=== PATIENT | male | born 1935 | race Caucasian/White ===

== ENCOUNTER 2018-02-20 11:53 | Inpatient (IN) | payer MEDICARE ==
[~2018-02-20 11:53] MED LIST: ISOVUE-370 76%-LOCM 1 ML ONE
[2018-02-20 12:49] LABS: Hemoglobin 15.5 g/dL (14.0-18.0); Mean Corpuscular HGB CONC 35.6 g/dL (32.0-36.0); Mean Corpuscular Hemoglobin 31.6 pg (27.0-31.0); Mean Corpuscular Volume 88.7 fL (78.0-98.0); Mean Platelet Volume 8.2 fL (7.4-10.4); Platelet Count 180 thou/uL (130-400); RBC Distribution Width 13.2 % (11.5-14.5); Red Blood Cell (RBC) Count 4.92 mill/uL (4.70-6.10); White Blood Cell (WBC) Count 10.7 thou/uL (4.8-10.8)
[2018-02-20 13:07] LABS: Band 28 % (5-11); Dohle Bodies SLIGHT; Lymphocytes 1 % (21-51); MDiff Complete? YES; Metamyelocyte 2 % (0-0); Monocytes 4 % (0-10); Neutrophil 63 % (42-75); Platelet Morphology Comment Appears Adequate; RBC Morphology Normal; Reactive Lymphocytes 1 % (0-10); Toxic Granulation SLIGHT; Vacuoles SLIGHT
[2018-02-20 13:08] LABS: ALT (SGPT) 17 U/L (8-55); AST (SGOT) 40 U/L (5-34); Albumin 3.9 g/dL (3.4-4.8); Alkaline Phosphatase 61 U/L (40-150); Anion Gap 20 mmol/L (10-20); BUN (Urea Nitrogen) 25 mg/dL (8.4-25.7); Bilirubin, Total 1.2 mg/dL (0.2-1.2); Calc. Creatinine Clearance 0 mL/min (70-130); Calcium 9.2 mg/dL (7.8-10.44); Carbon Dioxide 18 mmol/L (23-31); Chloride 98 mmol/L (98-107); Estimated GFR-MDRD 57; Globulin 3.4 g/dL (2.4-3.5); Glucose 134 mg/dL (83-110); Protein, Total 7.3 g/dL (5.8-8.1); Sodium 132 mmol/L (136-145)
[2018-02-20] MEDS ORDERED: cefTRIAXone\\ROCEPHIN 2 GM VIAL ONE (13:24)
[2018-02-20] MEDS ORDERED: Aspirin 325 MG TAB ONE (13:37)
[2018-02-20] MEDS ORDERED: Acetaminophen 500 MG TAB ONE (13:37)
[2018-02-20 13:38] LABS: CKMB 1.3 ng/mL (0-6.6)
[2018-02-20] MEDS ORDERED: Vancomycin HCl 1.25 GM in Sodium Chloride 0.9% 250 ML 250 ML IVPB SCH (13:45)
[2018-02-20] MEDS ORDERED: Gentamicin Sulfate 410 MG in Sodium Chloride 0.9% 100 ML IVPB SCH (13:45)
--- NOTE | 2018-02-20 14:24 | RAD ---
AP CHEST: HISTORY: Fever. FINDINGS: The lungs appear clear of infiltrate. Vascular markings normal. Heart and mediastinum unremarkable. Prominent aortic calcification is noted. IMPRESSION: No acute process. POS: [facility]
[2018-02-20 15:00] LABS: Bilirubin Small (Negative); Blood, Urine Negative (Negative); Clarity CLEAR (Clear); Glucose, Urine (Dipstick) Negative (Negative); Leukocyte Moderate (Negative); Nitrite Negative (Negative); Protein, Urine (Dipstick) 30 mg/dL (Neg-Trace); Specific Gravity, Urine 1.043 (1.002-1.036); pH, Urine 5.5 (5.0-9.0)
[2018-02-20 15:05] LABS: Bacteria/HPF None Seen HPF (None Seen); Pathc Cast-AUWi Flag 2.47 (0-2.49); RBC/HPF 0-3 HPF (0-3)
[2018-02-20 15:28] LABS: Hyaline Casts/LPF 0-3 HYALINE CAST LPF (0-3 Hyaline)
[2018-02-20] MEDS ORDERED: Norepinephrine 8 MG/0.9% NS 250 ML ONE (15:31)
--- NOTE | 2018-02-20 15:33 | CT ---
CT ANGIOGRAM OF THE CHEST: DATE: 02/20/2018. COMPARISON: None. HISTORY: Tachycardia, fever, chills. TECHNIQUE: Axial CT imaging at 2.5 mm intervals from the thoracic inlet through the upper abdomen with IV contra st using a CT angiogram protocol. Coronal and oblique sagittal 3D reformatted imaging obtained. FINDINGS: There is no axillary, mediastinal, or hilar lymphadenopathy. No significant pleural, pericardial, or mediastinal fluid. There is questionable mild wall thickening of the esophagus, particularly distal ly, versus under distention. Limited assessment of the upper abdomen demonstrates scattered atherosc lerotic calcification of the abdominal aorta and its branches. The abdominal aorta is ectatic, measu ring up to 2.8 cm in transverse dimension. There is extensive atherosclerotic calcification of the thoracic aorta and there is scattered atheros clerotic calcification of the coronary arteries. There is adequate opacification of the pulmonary arterial vasculature. No filling defect is seen to suggest the presence of acute pulmonary arterial embolism. There is no endobronchial lesion apparent on either side. There is an irregularly marginated nodular density present within the anterior inferior aspect of the right lower lobe best seen on image 86 measuring in the 7-8 mm range. It has an irregular spiculate d configuration on coronal reformatted imaging. A pulmonary nodule is noted within the right lower lobe on image 90 measuring 5 mm. There is a pulmonary nodule within the left upper lobe on axial image 59 measuring 6 mm, and there is linear density in the left upper lobe suggesting scar and/or volume loss centrally. No dominant pul monary parenchymal mass lesion or significant nodule noted in left lower lobe. Incidental note is ma de of a tiny nodule in the left lower lobe on image 99 measuring in the 2-3 mm range. Review of the osseous structures demonstrates no worrisome lytic or blastic lesion. IMPRESSION: 1. No evidence for pulmonary arterial embolism. 2. Diffuse atherosclerotic disease including coronary arterial calcification. 3. Questionable wall thickening versus under distention of the esophagus. 4. Noncalcified pulmonary nodules, which includes an irregularly marginated somewhat spiculated nodu le in right lower lobe measuring in the 7-8 mm range. Recommend short-term followup CT examination o f the chest in 3 months. This could represent a small/early malignancy. Dr. Cervantes made aware at 2:12 p.m. via phone by Dr. Murphy 02/20/2018. CODE CR POS: [facility]
--- NOTE | 2018-02-20 16:24 | RAD ---
EXAM: CHEST ONE VIEW: 02/20/18 HISTORY: Dyspnea, tachycardia, right central line. COMPARISON: 02/20/18. A right central line has been placed with the tip extending into the superior vena cava. Heart size i s normal. There is no pneumothorax or pleural effusion or other acute process. IMPRESSION: Right central line placement. No acute intrathoracic disease. Stable from prior study. POS: [facility]
[2018-02-20 16:34] LABS: Troponin I 0.511 ng/mL (< 0.028)
[2018-02-20 16:44] LABS: Lactic Acid 2.1 mmol/L (0.5-2.2)
--- NOTE | 2018-02-20 17:02 | HP ---
PRIMARY CARE PHYSICIAN: [facility]. This patient is recently moved from [place] to [facility]. HISTORY OF PRESENT ILLNESS: An 82-year-old male, who has underlying history of hypertension, diabetes type 2, dyslipidemia, benign enlargement of prostate, anxiety, and depression as well as heavy ongoing tobacco abuse disorder, who was sick for last 2 to 3 days. The patient was experiencing fever, chills, weakness , nausea, and vomiting, which were keep getting worse day by day. Last night, he was more uncomfortable. He was having dysuria, increased frequency as well as back pain and lower abdominal pain associated with several times of vomiting. His appetite was also reduced. He was feeling extremely fatigued and weak. In the emergency room at that time, he was found with routine blood test with bandemia. His chest x-ray was unremarkable. His CT angiography showed no evidence of pulmonary embolism, but did show pulmonary nodule. In the emergency room, the patient's blood pressure dropped to 72/37. He was febrile with a temperature T-maximum 102.8 and he was tachycardic with pulse 127. He was given 3 L of IV fluid. Despite that, the patient's blood pressure was not improving and that is why we decided to do central line in emergency room. The patient will be admitted to ICU for septic shock. The patient denies any flu-like illness. He does have chronic smoker's cough. He denies any shortness of breath. He denies any hemoptysis. He denies any hematuria. He denies any constipation, diarrhea, melena, or hematochezia. He denies any recent travel or sick exposure. The patient's routine blood test also showed significantly abnormal troponin, but he denies any chest pain, palpitation, or syncope. He denies any fall. REVIEW OF SYSTEMS: CONSTITUTIONAL: Negative for weight loss or gain, ability to conduct usual activities. SKIN: Negative for rash, itching. EYES: Negative for double vision, pain. ENT/MOUTH: Negative for nose bleeding, neck stiffness, pain, tenderness. CARDIOVASCULAR: Negative for palpitations, dyspnea on exertion, orthopnea. RESPIRATORY: Negative for shortness of breath, wheezing, cough, hemoptysis, fever or night sweats. GASTROINTESTINAL: Negative for poor appetite, abdominal pain, heartburn, nausea , vomiting, constipation, or diarrhea. GENITOURINARY: Negative for urgency, frequency, dysuria, nocturia. MUSCULOSKELETAL: Negative for pain, swelling. NEUROLOGIC/PSYCHIATRIC: Negative for anxiety, depression. ALLERGY/IMMUNOLOGIC: Negative for skin rash, bleeding tendency. Please see my HPI for pertinent positives and negatives. All other review of systems are reviewed and negative, except as mentioned in the HPI. PAST MEDICAL HISTORY: Hypertension, peripheral vascular disease, tobacco abuse disorder, diabetes type 2, dyslipidemia, benign enlargement of prostate, restless legs syndrome. PAST PSYCHIATRIC HISTORY: Anxiety and depression. PAST SURGICAL HISTORY: The patient is a poor historian. He does not provide significant past surgical history other than he had orthopedic surgery on right leg. FAMILY HISTORY: No family history of coronary artery disease, stroke, or cancer. ALLERGIES: NO KNOWN DRUG ALLERGIES. SOCIAL HISTORY: Patient smokes 1.5 pack per day, he denies alcohol or drug abuse , lives at home in [place] with . CURRENT HOME MEDICATIONS: 1. Ropinirole 2 mg p.o. at bedtime. 2. Clonazepam 1 mg p.o. at bedtime. 3. Bupropion 150 mg daily. 4. Losartan 100 mg daily. 5. Cilostazol 50 mg p.o. b.i.d. 6. Metformin 750 mg daily. 7. Zoloft 100 mg daily. 8. Zocor 40 mg p.o. at bedtime. 9. Flomax 0.4 mg p.o. daily. It is unclear whether the patient was on Rocephin or Bactrim. The patient is not able to provide this history to me. EMERGENCY ROOM COURSE: The patient has received vancomycin, gentamicin, IV fluid, aspirin. PHYSICAL EXAMINATION: VITAL SIGNS: T-maximum 102.8, pulse 127, blood pressure 72/37, weight 82.1 kg, saturation 94% on room air. GENERAL: The patient is currently ill, hypotensive, tachycardic. No obvious acute distress. HEENT: Head; normocephalic, atraumatic. Eyes; pupils are round, reactive to light. Extraocular muscle intact. Face; the patient does have facial flushing. ENT; oropharynx within normal limits. Somewhat dry appearing mucous membranes. No oral lesion. No pharyngeal erythema. No exudate. NECK: Supple. No JVD. No thyromegaly. No carotid bruit. LUNGS: Grossly clear to auscultation without any rhonchi or rales. No accessory muscles of respiration in use. CARDIAC: S1 and S2, regular. Tachycardia. Soft systolic murmur noted parasternally. No gallop. No rub. ABDOMEN: Soft. Bowel sounds are present. Nontender. Nondistended. No organomegaly. No mass. No suprapubic tenderness. BACK: Unremarkable. No CVA tenderness. EXTREMITIES: Upper extremities; passive movement of all joints are normal. Lower extremities; no edema. Good distal pulsation. SKIN: No skin rash. HEMATOLOGICAL: No lymphadenopathy. PSYCHIATRIC: Normal affect. NEUROLOGIC: Nonfocal examination. SIGNIFICANT LABORATORY DATA: Urinalysis consistent with urinary tract infection with high specific gravity; leukocyte esterase, moderate; protein 30; WBC greater than 50. BNP 238.4. Influenza A and B negative. Troponin I 0.527. CK-MB 1.3. CBC; WBC 10.7, hemoglobin 15.5, platelets 180 with bandemia 28%. BMP; sodium 132, potassium 4.0, chloride 98, carbon dioxide 18, anion gap 20, BUN 25, creatinine 1.22, glucose 134, calcium 9.4. LFT; AST 40, ALT 17, alkaline phosphatase 61, albumin 3.9, lactic acid 3.3. Chest x-ray based on my review; emphysematous changes, but no acute process. CT angiography; pulmonary nodule noted, but no infiltration. ASSESSMENT AND PLAN: 1. Septic shock. The patient has high-grade fever, tachycardia, hypotension. The patient's hypotension has not improved with IV fluid in the emergency room. He has source of infection with urinary tract infection. The patient will require central line placement and vasopressor support. The patient will be admitted in ICU overnight. We will titrate Levophed drip as needed. The patient will be given IV fluid with NS at 125 mL/hr. We will watch for hemodynamics. The patient will be given broad-spectrum antibiotic therapy with vancomycin, Zosyn. We will follow up on culture result. Pulmonary Critical Care group will be consulted in ICU. 2. Demand ischemia of myocardium. The patient has significantly elevated troponin. We will do serial cardiac enzyme to see the trend of troponin. The patient is not complaining of any chest pain. His EKG is not showing any ischemic changes. Cardiology will be consulted. Echocardiography will be obtained. We will continue with aspirin 325 mg p.o. daily. We will check lipid profile tomorrow morning. The patient has low blood pressure, that is why he can not have any other medication. 3. Sepsis with acute organ dysfunction. The patient does have associated demand ischemia of myocardium with severe sepsis with hypotension. As mentioned in problem #1, the patient will get vasopressor support, IV fluid, broad-spectrum antibiotic coverage. 4. Urinary tract infection. Urine culture will be sent. Blood culture will be sent. The patient will be started on broad-spectrum antibiotic therapy and will follow up on culture result, and based on culture result, we will narrow down antibiotic spectrum. 5. Bandemia. We will also check stool for C diff if the patient has any diarrhea to rule out any C diff infection. We will also check influenza. We will also check other virus screen. 6. Diabetes type 2. We will hold on metformin therapy. We will continue with insulin as per sliding scale per protocol. Diabetic diet will be given. 7. Anxiety and depression. We will continue clonazepam 1 mg at bedtime, Zoloft 100 mg daily. 8. Dyslipidemia. We will continue Zocor 40 mg p.o. at bedtime. 9. Benign enlargement of prostate. We will continue Flomax 0.4 mg p.o. b.i.d. We will watch for any postvoid residual volume. 10. History of hypertension. Currently, we will hold antihypertensive medication because of hypotension. 11. Peripheral vascular disease. We will continue cilostazol as per home dosage. 12. Tobacco abuse disorder. Smoking cessation counseling given. Healthy lifestyle measure discussed with the patient. 13. Elevated BNP. We will obtain echocardiography to assess ejection fraction and will watch for any fluid overload status. DISPOSITION AND PLAN: Based on clinical course, we are expecting the patient's stay in hospital more than 2 midnights. Total time spent providing critical care to this patient in the emergency room, 35 minutes. Job ID: [id number] MTDD
[2018-02-20] MEDS: Sodium Chloride 0.9% 1,000 ML IV SCH (17:05)
[2018-02-20] MEDS ORDERED: Acetaminophen 325 MG TAB PO PRN (17:24)
[2018-02-20] MEDS ORDERED: Dextrose 50% Abboject 50 ML SYRINGE SLOW IVP PRN (17:24)
[2018-02-20] MEDS ORDERED: HumaLOG 300 UNITS/3 ML VIAL SC PRN (17:24)
[2018-02-20] MEDS ORDERED: Norepinephrine 8 MG/0.9% NS 250 ML IVPB SCH (17:24)
[2018-02-20] MEDS ORDERED: HYDROcodone/Acetaminophen 5/325 mg Tablet PO PRN (17:24)
[2018-02-20] MEDS ORDERED: Sodium Chloride 0.65% Nasal 44 ML BOT EA NARE PRN (17:24)
[2018-02-20] MEDS ORDERED: Bisacodyl 5 MG TAB PO PRN (17:24)
[2018-02-20] MEDS ORDERED: Diabetic Tussin 200 MG/10 ML UDCUP PO PRN (17:24)
[2018-02-20] MEDS ORDERED: Metoclopramide HCl 10 MG/2 ML VIAL IVP PRN (17:24)
[2018-02-20] MEDS ORDERED: Zolpidem Tartrate 5 MG TAB PO PRN (17:24)
[2018-02-20] MEDS ORDERED: Ondansetron PF 4 MG/2 ML Vial IVP PRN (17:24)
[2018-02-20] MEDS ORDERED: Eucerin (Mineral Oil/Petrolatum,White) 30 gm Jar TOP PRN (17:24)
[2018-02-20] MEDS ORDERED: Ondansetron ODT 4 MG TAB PO PRN (17:24)
[2018-02-20] MEDS ORDERED: Calcium Carbonate 500 MG ChewTAB PO PRN (17:24)
[2018-02-20] MEDS ORDERED: Bisacodyl 10 MG SUPP PR PRN (17:24)
[2018-02-20] MEDS ORDERED: Artificial Tear Sol 15 ML BOT EA EYE PRN (17:24)
[2018-02-20] MEDS ORDERED: Cepastat Lozenges 1 LOZ PO PRN (17:24)
[2018-02-20] MEDS ORDERED: hydrALAZINE 20 MG/ML VIAL SLOW IVP PRN (17:24)
[2018-02-20] MEDS ORDERED: Dextrose 5% in Water 1,000 ML IV PRN (17:24)
[2018-02-20] MEDS: Nicotine 21 MG PATCH TD SCH (18:37)
[2018-02-20] MEDS: Piperacillin/Tazobactam 3.375 GM in Sodium Chloride 0.9% 100 ML IVPB SCH ×2 (18:38→23:13)
[2018-02-20 19:43] LABS: Critical Call Chem Troponin I DECREASE; Troponin I 0.375 ng/mL (< 0.028)
[2018-02-20] MEDS: Famotidine 20 MG TAB PO SCH (20:16)
[2018-02-20] MEDS: Cilostazol 100 MG TAB PO SCH (20:17)
[2018-02-20] MEDS: Atorvastatin Calcium 20 MG TAB PO SCH (20:17)
[2018-02-20] MEDS: clonazePAM 1 MG TAB PO PRN (21:42)
[2018-02-21 05:05] LABS: #Basophils 0.1 thou/uL (0.0-0.2); #Lymphocytes 0.5 thou/uL (1.20-3.40); #Monocytes 0.4 thou/uL (0.11-0.59); #Neutrophils 7.7 thou/uL (1.40-6.50); %Basophils 1.5 % (0.0-1.0); %Eosinophils 0.2 % (0.0-10.0); %Lymphocytes 5.3 % (21.0-51.0); %Monocytes 4.5 % (0.0-10.0); %Neutrophils 88.5 % (42.0-75.0); Hemoglobin 14.4 g/dL (14.0-18.0); Mean Corpuscular Hemoglobin 30.8 pg (27.0-31.0); Mean Platelet Volume 8.1 fL (7.4-10.4); Platelet Count 146 thou/uL (130-400); Red Blood Cell (RBC) Count 4.68 mill/uL (4.70-6.10); White Blood Cell (WBC) Count 8.7 thou/uL (4.8-10.8)
[2018-02-21 05:28] LABS: Lactic Acid 1.6 mmol/L (0.5-2.2)
[2018-02-21 05:31] LABS: ALT (SGPT) 58 U/L (8-55); AST (SGOT) 111 U/L (5-34); Albumin 3.2 g/dL (3.4-4.8); Alkaline Phosphatase 73 U/L (40-150); Anion Gap 12 mmol/L (10-20); BUN (Urea Nitrogen) 18 mg/dL (8.4-25.7); Bilirubin, Total 1.1 mg/dL (0.2-1.2); Calc. Creatinine Clearance 73 mL/min (70-130); Carbon Dioxide 22 mmol/L (23-31); Cardiac Risk 6.5 (Less than 4.5); Chloride 101 mmol/L (98-107); Cholesterol 84 mg/dl (< 200 Desired); Estimated GFR-MDRD 81; Globulin 2.9 g/dL (2.4-3.5); Glucose 129 mg/dL (83-110); HDL Cholesterol 13 mg/dL (>60 Neg Risk); LDL Cholesterol, Calculated 37 mg/dL; Potassium 3.8 mmol/L (3.5-5.1); Protein, Total 6.1 g/dL (5.8-8.1); Sodium 131 mmol/L (136-145); Triglycerides 168 mg/dL (Less than 150)
[2018-02-21] MEDS: Sodium Chloride 0.9% 1,000 ML IV SCH ×3 (05:46→23:41)
[2018-02-21] MEDS: Piperacillin/Tazobactam 3.375 GM in Sodium Chloride 0.9% 100 ML IVPB SCH ×4 (06:40→23:41)
--- NOTE | 2018-02-21 10:03 | PDOC.PN ---
- Subjective Encounter Start Date: 02/21/18 Encounter Start Time: 09:00 -: old records requested/rev Patient seen and examined. No overnight events pt has urinary retention today he used bipap last night he had earlier panic episode - Objective Resuscitation Status - Order Detail: 02/20/18 15:48 Resuscitation Status Routine Resuscitation Status: FULL: Full Resuscitation MAR Reviewed: Yes Vital Signs & Weight: Vital Signs (12 hours) Temp Pulse Resp Pulse Ox 02/21/18 08:00 98.4 F 02/21/18 05:17 93 L 02/21/18 05:14 127 H 26 H 93 L 02/21/18 04:00 98.3 F 02/21/18 00:00 99.1 F Weight Admit Weight 185 lb 6.54 oz Weight 185 lb 6.54 oz Most Recent Monitor Data Heart Rate from ECG 114 NIBP 113/67 NIBP BP-Mean 82 Respiration from ECG 24 SpO2 93 I&O: 02/20/18 02/21/18 02/22/18 06:59 06:59 06:59 Intake Total 3153 Output Total 700 50 Balance 2453 -50 Result Diagrams: 02/21/18 04:59 02/21/18 04:59 Additional Labs: Accuchecks 02/21/18 02/20/18 02/20/18 08:13 20:23 18:58 POC Glucose 138 H 151 H 148 H EKG Reviewed by me: Yes (sinus tachycardia) Phys Exam - Physical Examination Constitutional: NAD HEENT: PERRLA, moist MMs, sclera anicteric Neck: no JVD, supple Respiratory: no wheezing, no rales, no rhonchi Cardiovascular: RRR, no significant murmur, no rub tachycardia Gastrointestinal: soft, no distention, positive bowel sounds urinary retension Musculoskeletal: no edema, pulses present Neurological: non-focal, normal sensation Lymphatic: no nodes Psychiatric: normal affect Skin: no rash, normal turgor Dx/Plan (1) Septic shock Code(s): A41.9 - SEPSIS, UNSPECIFIED ORGANISM; R65.21 - SEVERE SEPSIS WITH SEPTIC SHOCK Status: Acute (2) Lactic acidosis Code(s): E87.2 - ACIDOSIS Status: Acute (3) UTI (urinary tract infection) Status: Acute (4) Demand ischemia of myocardium Code(s): I24.8 - OTHER FORMS OF ACUTE ISCHEMIC HEART DISEASE Status: Acute (5) Urinary retention due to benign prostatic hyperplasia Code(s): N40.1 - BENIGN PROSTATIC HYPERPLASIA WITH LOWER URINARY TRACT SYMP; R33.8 - OTHER RETENTION OF URINE Status: Acute (6) Elevated brain natriuretic peptide (BNP) level Code(s): R79.89 - OTHER SPECIFIED ABNORMAL FINDINGS OF BLOOD CHEMISTRY Status : Acute (7) Lung nodule, solitary Code(s): R91.1 - SOLITARY PULMONARY NODULE Status: Acute (8) Anxiety and depression Code(s): F41.9 - ANXIETY DISORDER, UNSPECIFIED; F32.9 - MAJOR DEPRESSIVE DISORDER, SINGLE EPISODE, UNSPECIFIED Status: Chronic (9) BPH (benign prostatic hyperplasia) Code(s): N40.0 - BENIGN PROSTATIC HYPERPLASIA WITHOUT LOWER URINRY TRACT SYMP Status: Chronic (10) COPD (chronic obstructive pulmonary disease) Status: Chronic (11) Diabetes type 2, controlled Code(s): E11.9 - TYPE 2 DIABETES MELLITUS WITHOUT COMPLICATIONS Status: Chronic (12) Tobacco abuse Code(s): Z72.0 - TOBACCO USE Status: Chronic - Plan cont current plan of care, espinosa catheter, continue antibiotics * medication reviewed as below * symptomatic treatment * insert espinosa * continue current antibiotics vancomycin, zosyn and levaquin * now off levophed * follow culture * cardiology and pulmonary will see today * echo pending * home medication reconciled * he will need outpt follow up with pulmonary for lung nodule and i discussed that result with pt. Review of Systems - Review of Systems Constitutional: negative: fever, chills, sweats, weakness, malaise, other Eyes: negative: Pain, Vision Change, Conjunctivae Inflammation, Eyelid Inflammation, Redness, Other ENT: negative: Ear Pain, Ear Discharge, Nose Pain, Nose Discharge, Nose Congestion, Mouth Pain, Mouth Swelling, Throat Pain, Throat Swelling, Other Respiratory: negative: Cough, Dry, Shortness of Breath, Hemoptysis, SOB with Excertion, Pleuritic Pain, Sputum, Wheezing Cardiovascular: negative: chest pain, palpitations, orthopnea, paroxysmal nocturnal dyspnea, edema, light headedness, other Gastrointestinal: negative: Nausea, Vomiting, Abdominal Pain, Diarrhea, Constipation, Melena, Hematochezia, Other Genitourinary: Dysuria, Retention. negative: Frequency, Incontinence, Hematuria , Other Musculoskeletal: negative: Neck Pain, Shoulder Pain, Arm Pain, Back Pain, Hand Pain, Leg Pain, Foot Pain, Other Skin: negative: Rash, Lesions, Florentin, Bruising, Other - Medications/Allergies Allergies/Adverse Reactions: Allergies Allergy/AdvReac Type Severity Reaction Status Date / Time No Known Drug Allergies Allergy Verified 02/20/18 20:08 Medications: Current Medications Acetaminophen (Tylenol) 650 mg PO Q4H PRN PRN Reason: Headache/Fever/Mild Pain (1-3) Last Admin: 02/20/18 20:16 Dose: 650 mg Hydrocodone Bitart/Acetaminophen ([place]orman 5/325) 1 tab PO Q4H PRN PRN Reason: Moderate Pain (4-6) Albuterol/Ipratropium (Duoneb) 3 ml NEB [id number] PRN PRN Reason: SOB &/or Wheezing Last Admin: 02/21/18 05:14 Dose: 3 ml Artificial Tears (Tears Renewed 15ml Bottle) 2 drop EA EYE PRN PRN PRN Reason: Dry Eyes Aspirin (Aspirin) 325 mg PO DAILY [facility] Atorvastatin Calcium (Lipitor) 20 mg PO HS [facility] Last Admin: 02/20/18 20:17 Dose: 20 mg Bisacodyl (Dulcolax) 10 mg NM DAILYPRN PRN PRN Reason: Constipation Bisacodyl (Dulcolax) 10 mg PO DAILYPRN PRN PRN Reason: Constipation Bupropion HCl (Wellbutrin Xl) 150 mg PO DAILY [facility] Calcium Carbonate (Tums) 1,000 mg PO Q4H PRN PRN Reason: Heartburn or Indigestion Cilostazol (Pletal) 50 mg PO Q12HR [facility] Last Admin: 02/20/18 20:17 Dose: Not Given Clonazepam (Klonopin) 1 mg PO Q24HR PRN PRN Reason: Anxiety Last Admin: 02/20/18 21:42 Dose: 1 mg Dextrose/Water (Dextrose 50%) 25 gm SLOW IVP PRN PRN PRN Reason: Hypoglycemia Enoxaparin Sodium (Lovenox) 40 mg SC 0900 [facility] Famotidine (Pepcid) 20 mg PO BID [facility] Last Admin: 02/20/18 20:16 Dose: 20 mg Glucagon (Glucagon) 1 mg IM PRN PRN PRN Reason: Hypoglycemia Guaifenesin (Robitussin Sf) 200 mg PO Q4H PRN PRN Reason: Cough Hydralazine HCl (Apresoline) 10 mg SLOW IVP Q4H PRN PRN Reason: SBP > 180 and HR < 70 Sodium Chloride (Normal Saline 0.9%) 1,000 mls @ 100 mls/hr IV .Q10H [facility] Last Admin: 02/21/18 05:46 Dose: 1,000 mls Piperacillin Sod/Tazobactam (Sod 3.375 gm/ Sodium Chloride) 100 mls @ 200 mls/ hr IVPB Q6HR [facility] Last Admin: 02/21/18 06:40 Dose: 100 mls Levofloxacin 500 mg/ Device 100 mls @ 100 mls/hr IVPB Q24HR [facility] Last Admin: 02/20/18 20:17 Dose: 100 mls Dextrose/Water (D5w) 1,000 mls @ 0 mls/hr IV .Q0M PRN PRN Reason: Hypoglycemia Norepinephrine Bitartrate (Levophed) 250 mls @ 0 mls/hr IVPB INF ADILENE; Protocol Insulin Human Lispro (Humalog) 0 units SC .MODERATE SLIDING SC PRN PRN Reason: Moderate Correctional Scale Insulin Human Lispro (Humalog) 0 units SC .BEDTIME SLIDING SC PRN PRN Reason: Bedtime Correctional Scale Loperamide HCl (Imodium) 2 mg PO PRN PRN PRN Reason: Diarrhea/Loose Stools Methylprednisolone Sodium Succinate (Solu-Medrol) 40 mg IVP Q6HR [facility] Metoclopramide HCl (Reglan) 5 mg IVP Q4H PRN PRN Reason: Nausea Mineral Oil/White Petrolatum (Eucerin Cream) 0 gm TOP BIDPRN PRN PRN Reason: Dry Skin Mometasone Furoate/Formoterol Fumar (Dulera 200 Mcg/5 Mcg Inhaler) 2 puff INH BID-RT [facility] Nicotine (Nicoderm Patch) 21 mg TD Q24HR [facility] Last Admin: 02/20/18 18:37 Dose: 21 mg Non-Formulary Medication (Ropinirole Hcl [Ropinirole Er]) 2 mg PO HS [facility] Ondansetron HCl (Zofran Odt) 4 mg PO Q6H PRN PRN Reason: Nausea/Vomiting Ondansetron HCl (Zofran) 4 mg IVP Q6H PRN PRN Reason: Nausea/Vomiting Sertraline HCl (Zoloft) 100 mg PO DAILY [facility] Sodium Chloride ([place] Nasal [place] 0.65%) 0 ml EA NARE QIDPRN PRN PRN Reason: Nasal Congestion Tamsulosin HCl (Flomax) 0.4 mg PO DAILY [facility] Throat Lozenges (Cepastat Lozenges) 1 nila PO Q2H PRN PRN Reason: Sore Throat Zolpidem Tartrate (Ambien) 5 mg PO HSPRN PRN PRN Reason: Insomnia
[2018-02-21] MEDS: Cilostazol 100 MG TAB PO SCH ×2 (10:05→20:53)
[2018-02-21] MEDS: Aspirin 325 MG TAB PO SCH (10:05)
[2018-02-21] MEDS: Famotidine 20 MG TAB PO SCH ×2 (10:06→20:56)
[2018-02-21] MEDS: Tamsulosin HCl 0.4 MG CAP PO SCH (10:06)
[2018-02-21] MEDS: Enoxaparin Sodium 40 MG/0.4 ML SYRINGE SC SCH (10:07)
--- NOTE | 2018-02-21 10:29 | CON ---
DATE OF CONSULTATION: HISTORY OF PRESENT ILLNESS: Richard Rodríguez is an 82-year-old gentleman from [place], [place], recently moved here, presented yesterday with symptoms of urinary tract infection. He states that he has yet to get himself established with a primary care physician. He has had previous BPH problems. He as chills, sweats, and dysuria. He was seen several days earlier and was given some antibiotics. He is admitted for urosepsis down the line in the ICU last night, he started having chills and sweats and apparently had tachypnea and tachycardic for which he was placed on noninvasive ventilation. The patient clearly tells me he has had no prior history of pneumonia, TB, or asthma, in fact, he did walk up to a mile without getting markedly short of breath. He is a two pack-a-day smoker, still smoking. PAST MEDICAL HISTORY: Pertinent for history of hypertension, diabetes, UTI, tobacco abuse, anxiety, and depression. MEDICATIONS: From home include, 1. Zocor 40. 2. Metformin 750 once a day. 3. Bupropion 150 once a day. 4. Clonazepam 1 mg at nighttime. 5. Flomax 0.4. 6. Zoloft 100. 7. Ropinirole 2 mg. 8. Cozaar. 9. He has been started on Zosyn and Levaquin. SOCIAL HISTORY: Otherwise unremarkable. FAMILY HISTORY: Otherwise unremarkable. ALLERGIES: NONE. REVIEW OF SYSTEMS: Ten-point negative. PHYSICAL EXAMINATION: VITAL SIGNS: O2 saturation is 95% on 2 liters, pulse 80, blood pressure . CHEST: Decreased breath sounds. No wheezing. CARDIAC: Normal S1 and S2. No gallops or masses. LABORATORY DATA: White count 8000, H and 14 and 41, and platelet count normal. Lytes are normal. Sodium 131. Troponin is slightly elevated. His BNP was 238, borderline elevated. His chest x-ray showed no acute infiltrates. He had a CT done of his chest yesterday. It is unclear why it was ordered, but showed a small right-sided nodule of unknown significance. He has had no previous CT done of his chest. IMPRESSION: 1. Urosepsis. 2. Benign prostatic hyperplasia. 3. Depression. 4. Tobacco abuse. 5. A 7 mm right lower lung nodule of unknown significance. PLAN: He clearly is in no respiratory distress at this stage, though I have initiated nebs and steroids. PFT prior to discharge work up on the patient to get his lung nodule. Once he is stable, he can be transferred out of the ICU. Consultation note, 70 minutes, 50% direct patient care. Job ID: [id number]
[2018-02-21] MEDS: Nicotine 21 MG PATCH TD SCH (17:24)
[2018-02-21] MEDS: HumaLOG 300 UNITS/3 ML VIAL SC PRN (17:51)
[2018-02-21] MEDS: Mometasone/Formoterol 120 PUFF INHALER INH SCH (19:10)
[2018-02-21] MEDS: clonazePAM 1 MG TAB PO PRN (20:30)
[2018-02-21] MEDS: Atorvastatin Calcium 20 MG TAB PO SCH (20:56)
[2018-02-21] MEDS: Loperamide HCl 2 MG CAP PO PRN (20:59)
[2018-02-22] MEDS: Piperacillin/Tazobactam 3.375 GM in Sodium Chloride 0.9% 100 ML IVPB SCH ×4 (06:04→23:46)
[2018-02-22] MEDS: HumaLOG 300 UNITS/3 ML VIAL SC PRN ×2 (06:13→13:09)
[2018-02-22 08:21] LABS: #Basophils 0.2 thou/uL (0.0-0.2); #Lymphocytes 0.7 thou/uL (1.20-3.40); #Monocytes 0.5 thou/uL (0.11-0.59); #Neutrophils 6.6 thou/uL (1.40-6.50); %Basophils 2.3 % (0.0-1.0); %Eosinophils 0.1 % (0.0-10.0); %Lymphocytes 8.8 % (21.0-51.0); %Neutrophils 82.7 % (42.0-75.0); Hemoglobin 13.7 g/dL (14.0-18.0); Mean Corpuscular HGB CONC 35.5 g/dL (32.0-36.0); Mean Corpuscular Hemoglobin 30.8 pg (27.0-31.0); Mean Corpuscular Volume 86.7 fL (78.0-98.0); Mean Platelet Volume 8.4 fL (7.4-10.4); Platelet Count 142 thou/uL (130-400); Red Blood Cell (RBC) Count 4.43 mill/uL (4.70-6.10)
[2018-02-22 08:45] LABS: Anion Gap 12 mmol/L (10-20); BUN (Urea Nitrogen) 16 mg/dL (8.4-25.7); Calc. Creatinine Clearance 82 mL/min (70-130); Calcium 8.2 mg/dL (7.8-10.44); Carbon Dioxide 21 mmol/L (23-31); Chloride 103 mmol/L (98-107); Estimated GFR-MDRD 90; Glucose 175 mg/dL (83-110); Potassium 4.2 mmol/L (3.5-5.1); Sodium 132 mmol/L (136-145)
[2018-02-22] MEDS: Mometasone/Formoterol 120 PUFF INHALER INH SCH ×2 (08:55→19:44)
[2018-02-22] MEDS: Bupropion 150 MG XL TAB PO SCH (09:30)
[2018-02-22] MEDS: Aspirin 325 MG TAB PO SCH (09:30)
[2018-02-22] MEDS: Famotidine 20 MG TAB PO SCH ×2 (09:30→20:28)
[2018-02-22] MEDS: Tamsulosin HCl 0.4 MG CAP PO SCH (09:30)
[2018-02-22] MEDS: Enoxaparin Sodium 40 MG/0.4 ML SYRINGE SC SCH (09:30)
--- NOTE | 2018-02-22 09:51 | PRG ---
DATE OF SERVICE: 02/22/2018 SUBJECTIVE: This morning, he is better, less short of breath, less cough, less fever. OBJECTIVE: VITAL SIGNS: Temperature 97.8, blood pressure , respiratory rate 18, and pulse 80. CHEST: Decreased breath sounds and wheezing. CARDIAC: Normal S1 and S2. No gallops. ABDOMEN: No masses. LABORATORY DATA: White count 8000, hemoglobin and hematocrit 10 and 38, platelet count is normal. Lytes are normal. IMPRESSION: 1. Presumed sepsis. 2. Right lung nodule, probably chronic obstructive pulmonary disease. PLAN: 1. Pulmonary elliott, he is on neb treatments, steroids, and empiric antibiotics for sepsis syndrome, but I do not see any evidence of any sepsis at this stage. 2. Input from Cardiology. 3. If stable, he can be transferred out of the ICU. Job ID: [id number]
--- NOTE | 2018-02-22 10:04 | PDOC.PN ---
- Subjective Encounter Start Date: 02/22/18 Encounter Start Time: 08:45 -: old records requested/rev Patient seen and examined. No new complaints. No overnight events - Objective Resuscitation Status - Order Detail: 02/20/18 15:48 Resuscitation Status Routine Resuscitation Status: FULL: Full Resuscitation MAR Reviewed: Yes Vital Signs & Weight: Vital Signs (12 hours) Temp Pulse Ox 02/22/18 08:56 95 02/22/18 04:00 97.8 F 02/22/18 00:00 98.9 F Weight Admit Weight 185 lb 6.54 oz Weight 190 lb 11.198 oz Most Recent Monitor Data Heart Rate from ECG 94 NIBP 117/77 NIBP BP-Mean 90 Respiration from ECG 23 SpO2 95 I&O: 02/21/18 02/22/18 02/23/18 06:59 06:59 06:59 Intake Total 3153 3437 Output Total 700 1620 Balance 2453 1817 Result Diagrams: 02/22/18 08:02 02/22/18 08:02 Additional Labs: Accuchecks 02/22/18 02/21/18 02/21/18 06:13 21:05 17:43 POC Glucose 183 H 203 H 183 H 02/21/18 11:52 POC Glucose 147 H Radiology Reviewed by me: Yes (echo report reviewed) EKG Reviewed by me: Yes (nsr) Phys Exam - Physical Examination Constitutional: NAD HEENT: PERRLA, moist MMs, sclera anicteric, oral pharynx no lesions Neck: no JVD, supple Respiratory: no wheezing, no rales, no rhonchi Cardiovascular: RRR, no significant murmur, no rub Gastrointestinal: soft, non-tender, no distention, positive bowel sounds Musculoskeletal: no edema, pulses present Neurological: non-focal, normal sensation, moves all 4 limbs Lymphatic: no nodes Psychiatric: normal affect, A&O x 3 Skin: no rash, normal turgor Dx/Plan (1) Septic shock Code(s): A41.9 - SEPSIS, UNSPECIFIED ORGANISM; R65.21 - SEVERE SEPSIS WITH SEPTIC SHOCK Status: Resolved (2) Lactic acidosis Code(s): E87.2 - ACIDOSIS Status: Resolved (3) UTI (urinary tract infection) Status: Acute (4) Demand ischemia of myocardium Code(s): I24.8 - OTHER FORMS OF ACUTE ISCHEMIC HEART DISEASE Status: Acute (5) Urinary retention due to benign prostatic hyperplasia Code(s): N40.1 - BENIGN PROSTATIC HYPERPLASIA WITH LOWER URINARY TRACT SYMP; R33.8 - OTHER RETENTION OF URINE Status: Acute (6) Elevated brain natriuretic peptide (BNP) level Code(s): R79.89 - OTHER SPECIFIED ABNORMAL FINDINGS OF BLOOD CHEMISTRY Status : Acute (7) Lung nodule, solitary Code(s): R91.1 - SOLITARY PULMONARY NODULE Status: Acute (8) Anxiety and depression Code(s): F41.9 - ANXIETY DISORDER, UNSPECIFIED; F32.9 - MAJOR DEPRESSIVE DISORDER, SINGLE EPISODE, UNSPECIFIED Status: Chronic (9) BPH (benign prostatic hyperplasia) Code(s): N40.0 - BENIGN PROSTATIC HYPERPLASIA WITHOUT LOWER URINRY TRACT SYMP Status: Chronic (10) COPD (chronic obstructive pulmonary disease) Status: Chronic (11) Diabetes type 2, controlled Code(s): E11.9 - TYPE 2 DIABETES MELLITUS WITHOUT COMPLICATIONS Status: Chronic (12) Tobacco abuse Code(s): Z72.0 - TOBACCO USE Status: Chronic (13) Cardiomyopathy Code(s): I42.9 - CARDIOMYOPATHY, UNSPECIFIED Status: Acute (14) Chronic systolic heart failure, ACC/AHA stage C Code(s): I50.22 - CHRONIC SYSTOLIC (CONGESTIVE) HEART FAILURE Status: Acute - Plan cont current plan of care, continue antibiotics * transfer to [facility] * voiding trial before discharge * cardiology to decide further investigation for cardiomyopathy * medication reviewed as below * symptomatic treatment * continue current iv antibiotics. zosyn and levaquin Review of Systems - Review of Systems ENT: negative: Ear Pain, Ear Discharge, Nose Pain, Nose Discharge, Nose Congestion, Mouth Pain, Mouth Swelling, Throat Pain, Throat Swelling, Other Respiratory: negative: Cough, Dry, Shortness of Breath, Hemoptysis, SOB with Excertion, Pleuritic Pain, Sputum, Wheezing Cardiovascular: negative: chest pain, palpitations, orthopnea, paroxysmal nocturnal dyspnea, edema, light headedness, other Gastrointestinal: negative: Nausea, Vomiting, Abdominal Pain, Diarrhea, Constipation, Melena, Hematochezia, Other Genitourinary: negative: Dysuria, Frequency, Incontinence, Hematuria, Retention , Other Musculoskeletal: negative: Neck Pain, Shoulder Pain, Arm Pain, Back Pain, Hand Pain, Leg Pain, Foot Pain, Other Skin: negative: Rash, Lesions, Florentin, Bruising, Other - Medications/Allergies Allergies/Adverse Reactions: Allergies Allergy/AdvReac Type Severity Reaction Status Date / Time No Known Drug Allergies Allergy Verified 02/20/18 20:08 Medications: Current Medications Acetaminophen (Tylenol) 650 mg PO Q4H PRN PRN Reason: Headache/Fever/Mild Pain (1-3) Last Admin: 02/20/18 20:16 Dose: 650 mg Hydrocodone Bitart/Acetaminophen ([place] 5/325) 1 tab PO Q4H PRN PRN Reason: Moderate Pain (4-6) Albuterol/Ipratropium (Duoneb) 3 ml NEB A1GY-SH PRN PRN Reason: SOB &/or Wheezing Last Admin: 02/21/18 05:14 Dose: 3 ml Artificial Tears (Tears Renewed 15ml Bottle) 2 drop EA EYE PRN PRN PRN Reason: Dry Eyes Aspirin (Aspirin) 325 mg PO DAILY [facility] Last Admin: 02/21/18 10:05 Dose: 325 mg Atorvastatin Calcium (Lipitor) 20 mg PO HS [facility] Last Admin: 02/21/18 20:56 Dose: 20 mg Bisacodyl (Dulcolax) 10 mg [place] DAILYPRN PRN PRN Reason: Constipation Bisacodyl (Dulcolax) 10 mg PO DAILYPRN PRN PRN Reason: Constipation Bupropion HCl (Wellbutrin Xl) 150 mg PO DAILY [facility] Calcium Carbonate (Tums) 1,000 mg PO Q4H PRN PRN Reason: Heartburn or Indigestion Cilostazol (Pletal) 50 mg PO Q12HR [facility] Last Admin: 02/21/18 20:53 Dose: 50 mg Clonazepam (Klonopin) 1 mg PO Q24HR PRN PRN Reason: Anxiety Last Admin: 02/21/18 20:30 Dose: 1 mg Dextrose/Water (Dextrose 50%) 25 gm SLOW IVP PRN PRN PRN Reason: Hypoglycemia Enoxaparin Sodium (Lovenox) 40 mg SC 0900 [facility] Last Admin: 02/21/18 10:07 Dose: 40 mg Famotidine (Pepcid) 20 mg PO BID [facility] Last Admin: 02/21/18 20:56 Dose: 20 mg Glucagon (Glucagon) 1 mg IM PRN PRN PRN Reason: Hypoglycemia Guaifenesin (Robitussin Sf) 200 mg PO Q4H PRN PRN Reason: Cough Hydralazine HCl (Apresoline) 10 mg SLOW IVP Q4H PRN PRN Reason: SBP > 180 and HR < 70 Sodium Chloride (Normal Saline 0.9%) 1,000 mls @ 100 mls/hr IV .Q10H [facility] Last Admin: 02/21/18 23:41 Dose: 1,000 mls Piperacillin Sod/Tazobactam (Sod 3.375 gm/ Sodium Chloride) 100 mls @ 200 mls/ hr IVPB Q6HR [facility] Last Admin: 02/22/18 06:04 Dose: 100 mls Dextrose/Water (D5w) 1,000 mls @ 0 mls/hr IV .Q0M PRN PRN Reason: Hypoglycemia Insulin Human Lispro (Humalog) 0 units SC .MODERATE SLIDING SC PRN PRN Reason: Moderate Correctional Scale Last Admin: 02/22/18 06:13 Dose: 2 unit Insulin Human Lispro (Humalog) 0 units SC .BEDTIME SLIDING SC PRN PRN Reason: Bedtime Correctional Scale Last Admin: 02/21/18 21:05 Dose: 2 unit Levofloxacin (Levaquin) 500 mg PO 0600 [facility] Levofloxacin (Levaquin) 500 mg PO NOW [facility] Stop: 02/22/18 12:00 Loperamide HCl (Imodium) 2 mg PO PRN PRN PRN Reason: Diarrhea/Loose Stools Last Admin: 02/21/18 20:59 Dose: 2 mg Metoclopramide HCl (Reglan) 5 mg IVP Q4H PRN PRN Reason: Nausea Mineral Oil/White Petrolatum (Eucerin Cream) 0 gm TOP BIDPRN PRN PRN Reason: Dry Skin Mometasone Furoate/Formoterol Fumar (Dulera 200 Mcg/5 Mcg Inhaler) 2 puff INH BID-RT [facility] Last Admin: 02/22/18 08:55 Dose: 2 puff Nicotine (Nicoderm Patch) 21 mg TD Q24HR [facility] Last Admin: 02/21/18 17:24 Dose: 21 mg Non-Formulary Medication (Ropinirole Hcl [Ropinirole Er]) 2 mg PO HS [facility] Ondansetron HCl (Zofran Odt) 4 mg PO Q6H PRN PRN Reason: Nausea/Vomiting Ondansetron HCl (Zofran) 4 mg IVP Q6H PRN PRN Reason: Nausea/Vomiting Prednisone (Prednisone) 20 mg PO [facility] Sertraline HCl (Zoloft) 100 mg PO DAILY [facility] Last Admin: 02/21/18 10:06 Dose: 100 mg Sodium Chloride (Singac Nasal [place] 0.65%) 0 ml EA NARE QIDPRN PRN PRN Reason: Nasal Congestion Tamsulosin HCl (Flomax) 0.4 mg PO DAILY [facility] Last Admin: 02/21/18 10:06 Dose: 0.4 mg Throat Lozenges (Cepastat Lozenges) 1 nila PO Q2H PRN PRN Reason: Sore Throat Zolpidem Tartrate (Ambien) 5 mg PO HSPRN PRN PRN Reason: Insomnia
[2018-02-22] MEDS: Sodium Chloride 0.9% 1,000 ML IV SCH ×2 (10:05→21:45)
[2018-02-22] MEDS: Loperamide HCl 2 MG CAP PO PRN ×2 (10:29→20:29)
[2018-02-22] MEDS: Cilostazol 100 MG TAB PO SCH ×2 (10:30→20:28)
[2018-02-22 15:16] VITALS: BMI 25.8
[2018-02-22] MEDS: Nicotine 21 MG PATCH TD SCH (17:40)
[2018-02-22] MEDS: rOPINIRole HCl 2 MG TAB PO SCH ×2 (18:45→21:52)
[2018-02-22] MEDS: Atorvastatin Calcium 20 MG TAB PO SCH (20:29)
--- NOTE | 2018-02-23 00:16 | CON ---
DATE OF CONSULTATION: HISTORY OF PRESENT ILLNESS: Richard Rodríguez is an 82-year-old white male, who came to the emergency room with complaints of fever and chills, as well as urinary urgency and hesitancy. He was recently moved from [place] to [facility] and did not have a primary physician. In the emergency room, he had a temperature of 102.8. He was tachycardic with heart rate up to 127 per minute and hypotensive at 72/37. He has been started on broad-spectrum antibiotics. Given intravenous fluids and his blood pressure has improved today, although he has not restarted his antihypertensive medication. He denies any chest discomfort or shortness of breath. He denies ever being told that he had a weak heart. He states that 2 years ago, he underwent what sounds like whole-body arteriogram with coronary arteriography as well as lower extremity arteriography. He was told that his arteries to his heart were normal. PAST MEDICAL HISTORY: Hypertension, diabetes, hypercholesterolemia, peripheral vascular disease, benign prostatic hypertrophy, restless legs syndrome. OPERATIONS: Right leg surgery. MEDICATIONS: 1. Clonazepam 1 mg at bedtime. 2. Ropinirole 2 mg at bedtime. 3. Bupropion 150 daily. 4. Losartan 100 mg daily. 5. Pletal 50 mg b.i.d. 6. Metformin 750 daily. 7. Zoloft 100 mg daily. 8. Simvastatin 40 mg at bedtime. 9. Flomax 0.4 daily. ALLERGIES: NONE. SOCIAL HISTORY: He continues to smoke 2 packs per day. He does not drink alcohol. FAMILY HISTORY: Negative for coronary artery disease. REVIEW OF SYSTEMS: Otherwise unremarkable. PHYSICAL EXAMINATION: VITAL SIGNS: Blood pressure 108/62, pulse of 86. He did have one episode of supraventricular tachycardia up to 150 per minute, which has resolved. HEENT: PERRL. NECK: Supple. CHEST: Reveals distant breath sounds. CARDIOVASCULAR: S1 and S2 normal without any S3 or S4. There is a 1 to 2/6 systolic ejection murmur in the aortic area. ABDOMEN: Normal bowel sounds without tenderness. EXTREMITIES: Revealed no clubbing, cyanosis, or edema. NEUROLOGICAL: Grossly intact. SKIN: Warm and dry. LABORATORY DATA: I do not see an EKG on the chart. Echocardiogram revealed the study to be technically difficult. Ejection fraction of 25% to 30% with moderately enlarged right ventricle, mild mitral regurgitation, moderate aortic stenosis, trace tricuspid regurgitation. Chest CTA revealed no evidence of pulmonary embolism. Hemoglobin 13.7, hematocrit 38.4, white count 8000, platelets 142,000. Sodium 132, potassium 4.2, chloride 103, carbon dioxide 21, BUN 16, creatinine 0.82. Urinalysis revealed greater than 50 wbc's and no bacteria seen. BNP 260.1. Troponin I is up to 0.527. He does have moderate aortic stenosis on his echocardiogram. IMPRESSION: 1. Probable urosepsis although urine culture thus far has no growth. 2. Elevated troponin I. He denies any chest discomfort. This certainly may be due to demand ischemia from infectious problems. 3. Severe left ventricular dysfunction of uncertain etiology. He has never been told that he has a weak heart and apparently had a cardiac catheterization 2 years ago, which also showed normal coronary arteries. 4. Hypertension. 5. Diabetes. 6. Hypercholesterolemia. 7. The patient continued to smoke 2 packs per day. 8. Episode of supraventricular tachycardia at 150 per minute. PLAN: Mr. Rodríguez will be watched closely for his volume status and may need to start intravenous Lasix. We will start carvedilol one-half of a 3.125 mg tablet b.i.d. Records will be requested from [facility] in [place]. We will continue to follow the patient with you. Job ID: [id number] MTDD
[2018-02-23] MEDS: Sodium Chloride 0.9% 1,000 ML IV SCH (05:47)
[2018-02-23] MEDS: Piperacillin/Tazobactam 3.375 GM in Sodium Chloride 0.9% 100 ML IVPB SCH (05:48)
[2018-02-23] MEDS: Mometasone/Formoterol 120 PUFF INHALER INH SCH ×2 (07:26→19:39)
[2018-02-23] MEDS: predniSONE 20 MG TAB PO SCH (08:56)
[2018-02-23] MEDS: Carvedilol 3.125 MG TAB PO SCH ×2 (08:56→17:48)
[2018-02-23] MEDS: Tamsulosin HCl 0.4 MG CAP PO SCH (08:57)
[2018-02-23] MEDS: Cilostazol 100 MG TAB PO SCH ×2 (08:57→21:24)
[2018-02-23] MEDS: Bupropion 150 MG XL TAB PO SCH (08:57)
[2018-02-23] MEDS: Famotidine 20 MG TAB PO SCH ×2 (08:58→21:25)
[2018-02-23] MEDS: Enoxaparin Sodium 40 MG/0.4 ML SYRINGE SC SCH (08:58)
[2018-02-23] MEDS: Aspirin 325 MG TAB PO SCH (08:58)
[2018-02-23] MEDS: Furosemide 20 MG/2 ML VIAL SLOW IVP SCH (08:58)
--- NOTE | 2018-02-23 10:16 | PDOC.PN ---
- Subjective Encounter Start Date: 02/23/18 Encounter Start Time: 07:10 Patient seen and examined. No new complaints. No overnight events - Objective Resuscitation Status - Order Detail: 02/20/18 15:48 Resuscitation Status Routine Resuscitation Status: FULL: Full Resuscitation MAR Reviewed: Yes Vital Signs & Weight: Vital Signs (12 hours) Temp Pulse Resp BP Pulse Ox 02/23/18 08:53 97.8 F 87 18 126/76 98 02/23/18 04:00 97.6 F 89 18 123/72 96 02/23/18 00:00 97.6 F 84 18 105/54 L 95 Weight Admit Weight 185 lb 6.54 oz Weight 196 lb Most Recent Monitor Data Heart Rate from ECG 85 NIBP 119/58 NIBP BP-Mean 78 Respiration from ECG 18 SpO2 98 I&O: 02/22/18 02/23/18 02/24/18 06:59 06:59 06:59 Intake Total 3437 3362 Output Total 1620 1355 425 Balance 1817 2006 - Result Diagrams: 02/22/18 08:02 02/22/18 08:02 Additional Labs: Accuchecks 02/23/18 02/22/18 02/22/18 05:42 21:27 20:35 POC Glucose 157 H 156 H 157 H 02/22/18 02/22/18 17:48 12:20 POC Glucose 144 H 242 H EKG Reviewed by me: Yes Phys Exam - Physical Examination Constitutional: NAD HEENT: PERRLA, moist MMs, sclera anicteric Neck: no JVD, supple Respiratory: no wheezing, no rales, no rhonchi Cardiovascular: RRR, no rub SM at aortic area Gastrointestinal: soft, non-tender, no distention, positive bowel sounds Musculoskeletal: no edema, pulses present Neurological: non-focal, normal sensation Lymphatic: no nodes Psychiatric: normal affect, A&O x 3 Skin: no rash, normal turgor Dx/Plan (1) UTI (urinary tract infection) Status: Acute (2) Septic shock Code(s): A41.9 - SEPSIS, UNSPECIFIED ORGANISM; R65.21 - SEVERE SEPSIS WITH SEPTIC SHOCK Status: Resolved (3) Lactic acidosis Code(s): E87.2 - ACIDOSIS Status: Resolved (4) Demand ischemia of myocardium Code(s): I24.8 - OTHER FORMS OF ACUTE ISCHEMIC HEART DISEASE Status: Acute (5) Urinary retention due to benign prostatic hyperplasia Code(s): N40.1 - BENIGN PROSTATIC HYPERPLASIA WITH LOWER URINARY TRACT SYMP; R33.8 - OTHER RETENTION OF URINE Status: Acute (6) Elevated brain natriuretic peptide (BNP) level Code(s): R79.89 - OTHER SPECIFIED ABNORMAL FINDINGS OF BLOOD CHEMISTRY Status : Acute (7) Lung nodule, solitary Code(s): R91.1 - SOLITARY PULMONARY NODULE Status: Acute (8) Anxiety and depression Code(s): F41.9 - ANXIETY DISORDER, UNSPECIFIED; F32.9 - MAJOR DEPRESSIVE DISORDER, SINGLE EPISODE, UNSPECIFIED Status: Chronic (9) BPH (benign prostatic hyperplasia) Code(s): N40.0 - BENIGN PROSTATIC HYPERPLASIA WITHOUT LOWER URINRY TRACT SYMP Status: Chronic (10) COPD (chronic obstructive pulmonary disease) Status: Chronic (11) Diabetes type 2, controlled Code(s): E11.9 - TYPE 2 DIABETES MELLITUS WITHOUT COMPLICATIONS Status: Chronic (12) Tobacco abuse Code(s): Z72.0 - TOBACCO USE Status: Chronic (13) Cardiomyopathy Code(s): I42.9 - CARDIOMYOPATHY, UNSPECIFIED Status: Acute (14) Chronic systolic heart failure, ACC/AHA stage C Code(s): I50.22 - CHRONIC SYSTOLIC (CONGESTIVE) HEART FAILURE Status: Acute (15) Moderate aortic stenosis Code(s): I35.0 - NONRHEUMATIC AORTIC (VALVE) STENOSIS Status: Chronic - Plan cont current plan of care, continue antibiotics * JAMES zosyn * DC IVF * give lasix * will get medical record from his previous cardiology * further plan will defer to cardiology * james espinosa today * monitor today * if no plan further from cardiac perspective, will consider discharge tomorrow * medication reviewed as below * symptomatic treatment. * continue levaquin Review of Systems - Review of Systems ENT: negative: Ear Pain, Ear Discharge, Nose Pain, Nose Discharge, Nose Congestion, Mouth Pain, Mouth Swelling, Throat Pain, Throat Swelling, Other Respiratory: negative: Cough, Dry, Shortness of Breath, Hemoptysis, SOB with Excertion, Pleuritic Pain, Sputum, Wheezing Cardiovascular: negative: chest pain, palpitations, orthopnea, paroxysmal nocturnal dyspnea, edema, light headedness, other Gastrointestinal: negative: Nausea, Vomiting, Abdominal Pain, Diarrhea, Constipation, Melena, Hematochezia, Other Genitourinary: negative: Dysuria, Frequency, Incontinence, Hematuria, Retention , Other Musculoskeletal: negative: Neck Pain, Shoulder Pain, Arm Pain, Back Pain, Hand Pain, Leg Pain, Foot Pain, Other - Medications/Allergies Allergies/Adverse Reactions: Allergies Allergy/AdvReac Type Severity Reaction Status Date / Time No Known Drug Allergies Allergy Verified 02/20/18 20:08 Medications: Current Medications Acetaminophen (Tylenol) 650 mg PO Q4H PRN PRN Reason: Headache/Fever/Mild Pain (1-3) Last Admin: 02/20/18 20:16 Dose: 650 mg Hydrocodone Bitart/Acetaminophen ([place] 5/325) 1 tab PO Q4H PRN PRN Reason: Moderate Pain (4-6) Last Admin: 02/23/18 02:02 Dose: 1 tab Albuterol/Ipratropium (Duoneb) 3 ml NEB [id number]-CU PRN PRN Reason: SOB &/or Wheezing Last Admin: 02/21/18 05:14 Dose: 3 ml Artificial Tears (Tears Renewed 15ml Bottle) 2 drop EA EYE PRN PRN PRN Reason: Dry Eyes Aspirin (Aspirin) 325 mg PO DAILY [facility] Last Admin: 02/23/18 08:58 Dose: 325 mg Atorvastatin Calcium (Lipitor) 20 mg PO HS [facility] Last Admin: 02/22/18 20:29 Dose: 20 mg Bisacodyl (Dulcolax) 10 mg [place] DAILYPRN PRN PRN Reason: Constipation Bisacodyl (Dulcolax) 10 mg PO DAILYPRN PRN PRN Reason: Constipation Bupropion HCl (Wellbutrin Xl) 150 mg PO DAILY [facility] Last Admin: 02/23/18 08:57 Dose: 150 mg Calcium Carbonate (Tums) 1,000 mg PO Q4H PRN PRN Reason: Heartburn or Indigestion Carvedilol (Coreg) 1.5625 mg PO BID-[facility] Last Admin: 02/23/18 08:56 Dose: 1.5625 mg Cilostazol (Pletal) 50 mg PO Q12HR [facility] Last Admin: 02/23/18 08:57 Dose: 50 mg Clonazepam (Klonopin) 1 mg PO Q24HR PRN PRN Reason: Anxiety Last Admin: 02/21/18 20:30 Dose: 1 mg Dextrose/Water (Dextrose 50%) 25 gm SLOW IVP PRN PRN PRN Reason: Hypoglycemia Enoxaparin Sodium (Lovenox) 40 mg SC 0900 [facility] Last Admin: 02/23/18 08:58 Dose: 40 mg Famotidine (Pepcid) 20 mg PO BID [facility] Last Admin: 02/23/18 08:58 Dose: 20 mg Furosemide (Lasix) 20 mg SLOW IVP DAILY [facility] Last Admin: 02/23/18 08:58 Dose: 20 mg Glucagon (Glucagon) 1 mg IM PRN PRN PRN Reason: Hypoglycemia Guaifenesin (Robitussin Sf) 200 mg PO Q4H PRN PRN Reason: Cough Hydralazine HCl (Apresoline) 10 mg SLOW IVP Q4H PRN PRN Reason: SBP > 180 and HR < 70 Dextrose/Water (D5w) 1,000 mls @ 0 mls/hr IV .Q0M PRN PRN Reason: Hypoglycemia Insulin Human Lispro (Humalog) 0 units SC .MODERATE SLIDING SC PRN PRN Reason: Moderate Correctional Scale Last Admin: 02/22/18 13:09 Dose: 4 unit Insulin Human Lispro (Humalog) 0 units SC .BEDTIME SLIDING SC PRN PRN Reason: Bedtime Correctional Scale Last Admin: 02/21/18 21:05 Dose: 2 unit Levofloxacin (Levaquin) 500 mg PO 0600 [facility] Last Admin: 02/23/18 05:48 Dose: 500 mg Loperamide HCl (Imodium) 2 mg PO PRN PRN PRN Reason: Diarrhea/Loose Stools Last Admin: 02/22/18 20:29 Dose: 2 mg Metoclopramide HCl (Reglan) 5 mg IVP Q4H PRN PRN Reason: Nausea Mineral Oil/White Petrolatum (Eucerin Cream) 0 gm TOP BIDPRN PRN PRN Reason: Dry Skin Mometasone Furoate/Formoterol Fumar (Dulera 200 Mcg/5 Mcg Inhaler) 2 puff INH BID-RT [facility] Last Admin: 02/23/18 07:26 Dose: 2 puff Nicotine (Nicoderm Patch) 21 mg TD Q24HR [facility] Last Admin: 02/22/18 17:40 Dose: 21 mg Ondansetron HCl (Zofran Odt) 4 mg PO Q6H PRN PRN Reason: Nausea/Vomiting Ondansetron HCl (Zofran) 4 mg IVP Q6H PRN PRN Reason: Nausea/Vomiting Prednisone (Prednisone) 20 mg PO QAM-[facility] Last Admin: 02/23/18 08:56 Dose: 20 mg Ropinirole HCl (Requip) 2 mg PO HS [facility] Last Admin: 02/22/18 21:52 Dose: 2 mg Sertraline HCl (Zoloft) 100 mg PO DAILY [facility] Last Admin: 02/23/18 08:58 Dose: 100 mg Sodium Chloride ([place] Nasal [place] 0.65%) 0 ml EA NARE QIDPRN PRN PRN Reason: Nasal Congestion Tamsulosin HCl (Flomax) 0.4 mg PO DAILY [facility] Last Admin: 02/23/18 08:57 Dose: 0.4 mg Throat Lozenges (Cepastat Lozenges) 1 nila PO Q2H PRN PRN Reason: Sore Throat Zolpidem Tartrate (Ambien) 5 mg PO HSPRN PRN PRN Reason: Insomnia
--- NOTE | 2018-02-23 10:36 | PRG ---
DATE OF SERVICE: 02/23/2018 SUBJECTIVE: He is awake, alert, and responsive. Denies any pain or shortness of breath. OBJECTIVE: VITAL SIGNS: Blood pressure is 126/76, saturations respiratory rate 18, and temperature 97. CHEST: Decreased breath sounds. No wheezing. CARDIAC: Normal S1 and S2. No gallops. ABDOMEN: No masses. IMPRESSION: 1. Urosepsis. 2. Elevated troponin. 3. Right lung nodule. 4. Supraventricular tachycardia. PLAN: Pulmonary elliott, he is to follow up in the office regarding his lung nodule in three months. Otherwise, discharge plan as per Cardiology. Job ID: [id number]
[2018-02-23] MEDS: Nicotine 21 MG PATCH TD SCH (17:48)
[2018-02-23] MEDS: HumaLOG 300 UNITS/3 ML VIAL SC PRN (17:50)
[2018-02-23] MEDS: clonazePAM 1 MG TAB PO PRN (21:24)
[2018-02-23] MEDS: Atorvastatin Calcium 20 MG TAB PO SCH (21:25)
[2018-02-23] MEDS: rOPINIRole HCl 2 MG TAB PO SCH (22:02)
[2018-02-24] MEDS: Mometasone/Formoterol 120 PUFF INHALER INH SCH ×2 (07:06→19:24)
[2018-02-24] MEDS: Furosemide 20 MG/2 ML VIAL SLOW IVP SCH (08:40)
[2018-02-24] MEDS: Famotidine 20 MG TAB PO SCH ×2 (08:41→22:05)
[2018-02-24] MEDS: Tamsulosin HCl 0.4 MG CAP PO SCH (08:41)
[2018-02-24] MEDS: Cilostazol 100 MG TAB PO SCH ×2 (08:41→22:05)
[2018-02-24] MEDS: Aspirin 325 MG TAB PO SCH (08:41)
[2018-02-24] MEDS: predniSONE 20 MG TAB PO SCH (08:41)
[2018-02-24] MEDS: Bupropion 150 MG XL TAB PO SCH (08:41)
[2018-02-24] MEDS: Enoxaparin Sodium 40 MG/0.4 ML SYRINGE SC SCH (08:42)
[2018-02-24] MEDS: Carvedilol 3.125 MG TAB PO SCH ×2 (08:42→16:53)
[2018-02-24] MEDS: Loperamide HCl 2 MG CAP PO PRN (08:49)
--- NOTE | 2018-02-24 09:23 | PRG ---
DATE OF SERVICE: 02/24/2018 SUBJECTIVE: This morning, he is awake, alert, and responsive. He denies any difficulty breathing. OBJECTIVE: VITAL SIGNS: Saturations are 90% on room air, blood pressure 139/68, respiratory rate 18, temperature 98, pulse 96. CHEST: Decreased breath sounds. No wheezing. CARDIAC: Normal S1 and S2. No gallops. ABDOMEN: Soft. IMPRESSION: 1. Right lung nodule. 2. Elevated troponin. 3. Urinary tract infection. 4. Supraventricular tachycardia. PLAN: Pulmonary elliott, he is stable enough to be discharged as per Cardiology. He is to follow up with me in the office in [address] of his chest. Job ID: [id number]
--- NOTE | 2018-02-24 10:57 | PDOC.PN ---
- Subjective Encounter Start Date: 02/24/18 Encounter Start Time: 07:30 Patient seen and examined. No new complaints. No overnight events he has diarrhoea and gas - Objective Resuscitation Status - Order Detail: 02/20/18 15:48 Resuscitation Status Routine Resuscitation Status: FULL: Full Resuscitation MAR Reviewed: Yes Vital Signs & Weight: Vital Signs (12 hours) Temp Pulse Resp BP BP Pulse Ox 02/24/18 08:35 98.1 F 96 18 139/68 98 02/24/18 07:06 92 16 96 02/24/18 04:00 97.8 F 78 18 131/74 96 Weight Admit Weight 185 lb 6.54 oz Weight 191 lb 8 oz Most Recent Monitor Data Heart Rate from ECG 85 NIBP 119/58 NIBP BP-Mean 78 Respiration from ECG 18 SpO2 98 I&O: 02/23/18 02/24/18 02/25/18 06:59 06:59 06:59 Intake Total 3362 1770 Output Total 1355 2025 Balance 2006 - Result Diagrams: 02/22/18 08:02 02/22/18 08:02 Additional Labs: Accuchecks 02/24/18 02/23/18 02/23/18 05:36 20:14 17:07 POC Glucose 123 H 121 H 213 H 02/23/18 10:52 POC Glucose 147 H EKG Reviewed by me: Yes (nsr) Phys Exam - Physical Examination Constitutional: NAD HEENT: PERRLA, moist MMs, sclera anicteric Neck: no JVD, supple Respiratory: no wheezing, no rales, no rhonchi Cardiovascular: RRR, no rub SM+ at aortic area Gastrointestinal: soft, non-tender, no distention, positive bowel sounds Musculoskeletal: no edema, pulses present Neurological: non-focal, normal sensation Psychiatric: normal affect, A&O x 3 Skin: no rash, normal turgor Dx/Plan (1) UTI (urinary tract infection) Status: Acute (2) Septic shock Code(s): A41.9 - SEPSIS, UNSPECIFIED ORGANISM; R65.21 - SEVERE SEPSIS WITH SEPTIC SHOCK Status: Resolved (3) Lactic acidosis Code(s): E87.2 - ACIDOSIS Status: Resolved (4) Demand ischemia of myocardium Code(s): I24.8 - OTHER FORMS OF ACUTE ISCHEMIC HEART DISEASE Status: Acute (5) Urinary retention due to benign prostatic hyperplasia Code(s): N40.1 - BENIGN PROSTATIC HYPERPLASIA WITH LOWER URINARY TRACT SYMP; R33.8 - OTHER RETENTION OF URINE Status: Acute (6) Elevated brain natriuretic peptide (BNP) level Code(s): R79.89 - OTHER SPECIFIED ABNORMAL FINDINGS OF BLOOD CHEMISTRY Status : Acute (7) Lung nodule, solitary Code(s): R91.1 - SOLITARY PULMONARY NODULE Status: Acute (8) Anxiety and depression Code(s): F41.9 - ANXIETY DISORDER, UNSPECIFIED; F32.9 - MAJOR DEPRESSIVE DISORDER, SINGLE EPISODE, UNSPECIFIED Status: Chronic (9) BPH (benign prostatic hyperplasia) Code(s): N40.0 - BENIGN PROSTATIC HYPERPLASIA WITHOUT LOWER URINRY TRACT SYMP Status: Chronic (10) COPD (chronic obstructive pulmonary disease) Status: Chronic (11) Diabetes type 2, controlled Code(s): E11.9 - TYPE 2 DIABETES MELLITUS WITHOUT COMPLICATIONS Status: Chronic (12) Tobacco abuse Code(s): Z72.0 - TOBACCO USE Status: Chronic (13) Cardiomyopathy Code(s): I42.9 - CARDIOMYOPATHY, UNSPECIFIED Status: Acute (14) Chronic systolic heart failure, ACC/AHA stage C Code(s): I50.22 - CHRONIC SYSTOLIC (CONGESTIVE) HEART FAILURE Status: Acute (15) Moderate aortic stenosis Code(s): I35.0 - NONRHEUMATIC AORTIC (VALVE) STENOSIS Status: Chronic - Plan cont current plan of care, continue antibiotics * continue levaquin * will need repeat CT chest after discharge on follow up * cardiology to decide further plan, await record from other hospital * medication reviewed as below * symptomatic treatment. Review of Systems - Review of Systems ENT: negative: Ear Pain, Ear Discharge, Nose Pain, Nose Discharge, Nose Congestion, Mouth Pain, Mouth Swelling, Throat Pain, Throat Swelling, Other Respiratory: negative: Cough, Dry, Shortness of Breath, Hemoptysis, SOB with Excertion, Pleuritic Pain, Sputum, Wheezing Cardiovascular: negative: chest pain, palpitations, orthopnea, paroxysmal nocturnal dyspnea, edema, light headedness, other Gastrointestinal: Diarrhea. negative: Nausea, Vomiting, Abdominal Pain, Constipation, Melena, Hematochezia, Other Genitourinary: negative: Dysuria, Frequency, Incontinence, Hematuria, Retention , Other Musculoskeletal: negative: Neck Pain, Shoulder Pain, Arm Pain, Back Pain, Hand Pain, Leg Pain, Foot Pain, Other - Medications/Allergies Allergies/Adverse Reactions: Allergies Allergy/AdvReac Type Severity Reaction Status Date / Time No Known Drug Allergies Allergy Verified 02/20/18 20:08 Medications: Current Medications Acetaminophen (Tylenol) 650 mg PO Q4H PRN PRN Reason: Headache/Fever/Mild Pain (1-3) Last Admin: 02/20/18 20:16 Dose: 650 mg Hydrocodone Bitart/Acetaminophen ([place] 5/325) 1 tab PO Q4H PRN PRN Reason: Moderate Pain (4-6) Last Admin: 02/23/18 02:02 Dose: 1 tab Albuterol/Ipratropium (Duoneb) 3 ml NEB [id number] PRN PRN Reason: SOB &/or Wheezing Last Admin: 02/21/18 05:14 Dose: 3 ml Artificial Tears (Tears Renewed 15ml Bottle) 2 drop EA EYE PRN PRN PRN Reason: Dry Eyes Aspirin (Aspirin) 325 mg PO DAILY [facility] Last Admin: 02/24/18 08:41 Dose: 325 mg Atorvastatin Calcium (Lipitor) 20 mg PO HS [facility] Last Admin: 02/23/18 21:25 Dose: 20 mg Bisacodyl (Dulcolax) 10 mg [place] DAILYPRN PRN PRN Reason: Constipation Bisacodyl (Dulcolax) 10 mg PO DAILYPRN PRN PRN Reason: Constipation Bupropion HCl (Wellbutrin Xl) 150 mg PO DAILY [facility] Last Admin: 02/24/18 08:41 Dose: 150 mg Calcium Carbonate (Tums) 1,000 mg PO Q4H PRN PRN Reason: Heartburn or Indigestion Carvedilol (Coreg) 3.125 mg PO BID-[facility] Last Admin: 02/24/18 08:42 Dose: 3.125 mg Cilostazol (Pletal) 50 mg PO Q12HR [facility] Last Admin: 02/24/18 08:41 Dose: 50 mg Clonazepam (Klonopin) 1 mg PO Q24HR PRN PRN Reason: Anxiety Last Admin: 02/23/18 21:24 Dose: 1 mg Dextrose/Water (Dextrose 50%) 25 gm SLOW IVP PRN PRN PRN Reason: Hypoglycemia Enoxaparin Sodium (Lovenox) 40 mg SC 0900 [facility] Last Admin: 02/24/18 08:42 Dose: 40 mg Famotidine (Pepcid) 20 mg PO BID [facility] Last Admin: 02/24/18 08:41 Dose: 20 mg Furosemide (Lasix) 20 mg SLOW IVP DAILY [facility] Last Admin: 02/24/18 08:40 Dose: 20 mg Glucagon (Glucagon) 1 mg IM PRN PRN PRN Reason: Hypoglycemia Guaifenesin (Robitussin Sf) 200 mg PO Q4H PRN PRN Reason: Cough Hydralazine HCl (Apresoline) 10 mg SLOW IVP Q4H PRN PRN Reason: SBP > 180 and HR < 70 Dextrose/Water (D5w) 1,000 mls @ 0 mls/hr IV .Q0M PRN PRN Reason: Hypoglycemia Insulin Human Lispro (Humalog) 0 units SC .MODERATE SLIDING SC PRN PRN Reason: Moderate Correctional Scale Last Admin: 02/23/18 17:50 Dose: 4 unit Insulin Human Lispro (Humalog) 0 units SC .BEDTIME SLIDING SC PRN PRN Reason: Bedtime Correctional Scale Last Admin: 02/21/18 21:05 Dose: 2 unit Levofloxacin (Levaquin) 500 mg PO 0600 [facility] Last Admin: 02/24/18 06:23 Dose: 500 mg Loperamide HCl (Imodium) 2 mg PO PRN PRN PRN Reason: Diarrhea/Loose Stools Last Admin: 02/24/18 08:49 Dose: 2 mg Metoclopramide HCl (Reglan) 5 mg IVP Q4H PRN PRN Reason: Nausea Mineral Oil/White Petrolatum (Eucerin Cream) 0 gm TOP BIDPRN PRN PRN Reason: Dry Skin Mometasone Furoate/Formoterol Fumar (Dulera 200 Mcg/5 Mcg Inhaler) 2 puff INH BID-RT [facility] Last Admin: 02/24/18 07:06 Dose: 2 puff Nicotine (Nicoderm Patch) 21 mg TD Q24HR [facility] Last Admin: 02/23/18 17:48 Dose: 21 mg Ondansetron HCl (Zofran Odt) 4 mg PO Q6H PRN PRN Reason: Nausea/Vomiting Ondansetron HCl (Zofran) 4 mg IVP Q6H PRN PRN Reason: Nausea/Vomiting Prednisone (Prednisone) 20 mg PO QAM-WM [facility] Last Admin: 02/24/18 08:41 Dose: 20 mg Ropinirole HCl (Requip) 2 mg PO HS [facility] Last Admin: 02/23/18 22:02 Dose: 2 mg Sertraline HCl (Zoloft) 100 mg PO DAILY [facility] Last Admin: 02/24/18 08:42 Dose: 100 mg Sodium Chloride ([place] 0.65%) 0 ml EA NARE QIDPRN PRN PRN Reason: Nasal Congestion Tamsulosin HCl (Flomax) 0.4 mg PO DAILY [facility] Last Admin: 02/24/18 08:41 Dose: 0.4 mg Throat Lozenges (Cepastat Lozenges) 1 nila PO Q2H PRN PRN Reason: Sore Throat Zolpidem Tartrate (Ambien) 5 mg PO HSPRN PRN PRN Reason: Insomnia
[2018-02-24] MEDS: Nicotine 21 MG PATCH TD SCH (16:53)
[2018-02-24] MEDS: HumaLOG 300 UNITS/3 ML VIAL SC PRN (17:30)
[2018-02-24] MEDS: rOPINIRole HCl 2 MG TAB PO SCH (22:05)
[2018-02-24] MEDS: Atorvastatin Calcium 20 MG TAB PO SCH (22:05)
[2018-02-24] MEDS: clonazePAM 1 MG TAB PO PRN (22:08)
--- NOTE | 2018-02-25 01:03 | CON ---
DATE OF CONSULTATION: This dictation is review of outside records. In January 2012, he had a nuclear scan test which revealed ejection fraction of 52% with normal perfusion. 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 He then underwent right femoral-distal bypass. No mention is made of left ventricular ejection fraction after 2011. Job ID: [id number]
[2018-02-25] MEDS: Mometasone/Formoterol 120 PUFF INHALER INH SCH (06:39)
[2018-02-25 08:41] VITALS: BP 167/91; TEMP 98.9
[2018-02-25] MEDS ORDERED: Lisinopril 2.5 MG TAB PO SCH (09:00)
--- NOTE | 2018-02-25 09:47 | PRG ---
DATE OF SERVICE: 02/25/2018 SUBJECTIVE: This morning, he is awake, alert, and responsive. He is better. He is planning to be discharged home today. Follow up with his manager radio in [place]. He is to see me in 3 months with a chest x-ray. OBJECTIVE: VITAL SIGNS: Pulse 106, temperature 98, blood pressure 169/91. CHEST: Decreased breath sounds without any wheezing. CARDIAC: Normal S1, S2. No gallops. ABDOMEN: No masses. IMPRESSION: 1. Sepsis syndrome. 2. Lung nodule. 3. Congestive heart failure. PLAN: Pulmonary elliott, follow up in the office regarding lung nodule. Job ID: [id number]
[2018-02-25] MEDS: Famotidine 20 MG TAB PO SCH (10:03)
[2018-02-25] MEDS: Cilostazol 100 MG TAB PO SCH (10:03)
[2018-02-25] MEDS: Bupropion 150 MG XL TAB PO SCH (10:03)
[2018-02-25] MEDS: Carvedilol 3.125 MG TAB PO SCH (10:04)
[2018-02-25] MEDS: Aspirin 325 MG TAB PO SCH (10:04)
[2018-02-25] MEDS: Tamsulosin HCl 0.4 MG CAP PO SCH (10:04)
[2018-02-25] MEDS: Enoxaparin Sodium 40 MG/0.4 ML SYRINGE SC SCH (10:05)
[2018-02-25] MEDS: Furosemide 20 MG/2 ML VIAL SLOW IVP SCH (10:05)
[2018-02-25] MEDS: predniSONE 20 MG TAB PO SCH (10:05)
--- NOTE | 2018-02-25 10:17 | PDOC.PN ---
- Subjective Encounter Start Date: 02/25/18 Encounter Start Time: 07:30 Patient seen and examined. No new complaints. No overnight events - Objective Resuscitation Status - Order Detail: 02/20/18 15:48 Resuscitation Status Routine Resuscitation Status: FULL: Full Resuscitation MAR Reviewed: Yes Vital Signs & Weight: Vital Signs (12 hours) Temp Pulse Resp BP BP Pulse Ox 02/25/18 07:55 98.9 F 106 H 16 167/91 H 96 02/25/18 06:41 95 02/25/18 06:39 101 H 16 96 02/25/18 03:42 98.5 F 86 17 130/65 96 Weight Admit Weight 185 lb 6.54 oz Weight 190 lb Most Recent Monitor Data Heart Rate from ECG 85 NIBP 119/58 NIBP BP-Mean 78 Respiration from ECG 18 SpO2 98 I&O: 02/24/18 02/25/18 02/26/18 06:59 06:59 06:59 Intake Total 1770 1300 Output Total 5 Balance -255 1300 Result Diagrams: 02/22/18 08:02 02/22/18 08:02 Additional Labs: Accuchecks 02/25/18 02/24/18 02/24/18 05:25 22:33 20:31 POC Glucose 140 H 184 H 56 L* 02/24/18 02/24/18 16:44 11:14 POC Glucose 258 H 170 H Phys Exam - Physical Examination Constitutional: NAD HEENT: PERRLA, moist MMs, sclera anicteric Neck: no JVD, supple Respiratory: no wheezing, no rales, no rhonchi Cardiovascular: RRR, no rub SM+ Gastrointestinal: soft, non-tender, no distention, positive bowel sounds Musculoskeletal: no edema, pulses present Neurological: non-focal, normal sensation Lymphatic: no nodes Psychiatric: normal affect, A&O x 3 Skin: no rash, normal turgor Dx/Plan (1) UTI (urinary tract infection) Status: Acute (2) Septic shock Code(s): A41.9 - SEPSIS, UNSPECIFIED ORGANISM; R65.21 - SEVERE SEPSIS WITH SEPTIC SHOCK Status: Resolved (3) Lactic acidosis Code(s): E87.2 - ACIDOSIS Status: Resolved (4) Demand ischemia of myocardium Code(s): I24.8 - OTHER FORMS OF ACUTE ISCHEMIC HEART DISEASE Status: Acute (5) Urinary retention due to benign prostatic hyperplasia Code(s): N40.1 - BENIGN PROSTATIC HYPERPLASIA WITH LOWER URINARY TRACT SYMP; R33.8 - OTHER RETENTION OF URINE Status: Acute (6) Elevated brain natriuretic peptide (BNP) level Code(s): R79.89 - OTHER SPECIFIED ABNORMAL FINDINGS OF BLOOD CHEMISTRY Status : Acute (7) Lung nodule, solitary Code(s): R91.1 - SOLITARY PULMONARY NODULE Status: Acute (8) Anxiety and depression Code(s): F41.9 - ANXIETY DISORDER, UNSPECIFIED; F32.9 - MAJOR DEPRESSIVE DISORDER, SINGLE EPISODE, UNSPECIFIED Status: Chronic (9) BPH (benign prostatic hyperplasia) Code(s): N40.0 - BENIGN PROSTATIC HYPERPLASIA WITHOUT LOWER URINRY TRACT SYMP Status: Chronic (10) COPD (chronic obstructive pulmonary disease) Status: Chronic (11) Diabetes type 2, controlled Code(s): E11.9 - TYPE 2 DIABETES MELLITUS WITHOUT COMPLICATIONS Status: Chronic (12) Tobacco abuse Code(s): Z72.0 - TOBACCO USE Status: Chronic (13) Cardiomyopathy Code(s): I42.9 - CARDIOMYOPATHY, UNSPECIFIED Status: Acute (14) Chronic systolic heart failure, ACC/AHA stage C Code(s): I50.22 - CHRONIC SYSTOLIC (CONGESTIVE) HEART FAILURE Status: Acute (15) Moderate aortic stenosis Code(s): I35.0 - NONRHEUMATIC AORTIC (VALVE) STENOSIS Status: Chronic - Plan cont current plan of care, continue antibiotics * medication reviewed as below * symptomatic treatment * see discharge jd. Review of Systems - Review of Systems ENT: negative: Ear Pain, Ear Discharge, Nose Pain, Nose Discharge, Nose Congestion, Mouth Pain, Mouth Swelling, Throat Pain, Throat Swelling, Other Respiratory: negative: Cough, Dry, Shortness of Breath, Hemoptysis, SOB with Excertion, Pleuritic Pain, Sputum, Wheezing Cardiovascular: negative: chest pain, palpitations, orthopnea, paroxysmal nocturnal dyspnea, edema, light headedness, other Gastrointestinal: negative: Nausea, Vomiting, Abdominal Pain, Diarrhea, Constipation, Melena, Hematochezia, Other Genitourinary: negative: Dysuria, Frequency, Incontinence, Hematuria, Retention , Other Musculoskeletal: negative: Neck Pain, Shoulder Pain, Arm Pain, Back Pain, Hand Pain, Leg Pain, Foot Pain, Other Skin: negative: Rash, Lesions, Florentin, Bruising, Other - Medications/Allergies Allergies/Adverse Reactions: Allergies Allergy/AdvReac Type Severity Reaction Status Date / Time No Known Drug Allergies Allergy Verified 02/20/18 20:08 Medications: Current Medications Acetaminophen (Tylenol) 650 mg PO Q4H PRN PRN Reason: Headache/Fever/Mild Pain (1-3) Last Admin: 02/20/18 20:16 Dose: 650 mg Hydrocodone Bitart/Acetaminophen ([place] 5/325) 1 tab PO Q4H PRN PRN Reason: Moderate Pain (4-6) Last Admin: 02/23/18 02:02 Dose: 1 tab Albuterol/Ipratropium (Duoneb) 3 ml NEB [id number] PRN PRN Reason: SOB &/or Wheezing Last Admin: 02/21/18 05:14 Dose: 3 ml Artificial Tears (Tears Renewed 15ml Bottle) 2 drop EA EYE PRN PRN PRN Reason: Dry Eyes Aspirin (Aspirin) 325 mg PO DAILY [facility] Last Admin: 02/25/18 10:04 Dose: 325 mg Atorvastatin Calcium (Lipitor) 20 mg PO HS [facility] Last Admin: 02/24/18 22:05 Dose: 20 mg Bisacodyl (Dulcolax) 10 mg [place] DAILYPRN PRN PRN Reason: Constipation Bisacodyl (Dulcolax) 10 mg PO DAILYPRN PRN PRN Reason: Constipation Bupropion HCl (Wellbutrin Xl) 150 mg PO DAILY [facility] Last Admin: 02/25/18 10:03 Dose: 150 mg Calcium Carbonate (Tums) 1,000 mg PO Q4H PRN PRN Reason: Heartburn or Indigestion Carvedilol (Coreg) 3.125 mg PO BID[facility] Last Admin: 02/25/18 10:04 Dose: 3.125 mg Cilostazol (Pletal) 50 mg PO Q12HR [facility] Last Admin: 02/25/18 10:03 Dose: 50 mg Clonazepam (Klonopin) 1 mg PO Q24HR PRN PRN Reason: Anxiety Last Admin: 02/24/18 22:08 Dose: 1 mg Dextrose/Water (Dextrose 50%) 25 gm SLOW IVP PRN PRN PRN Reason: Hypoglycemia Enoxaparin Sodium (Lovenox) 40 mg SC 0900 [facility] Last Admin: 02/25/18 10:05 Dose: 40 mg Famotidine (Pepcid) 20 mg PO BID [facility] Last Admin: 02/25/18 10:03 Dose: 20 mg Furosemide (Lasix) 20 mg SLOW IVP DAILY [facility] Last Admin: 02/25/18 10:05 Dose: 20 mg Glucagon (Glucagon) 1 mg IM PRN PRN PRN Reason: Hypoglycemia Guaifenesin (Robitussin Sf) 200 mg PO Q4H PRN PRN Reason: Cough Hydralazine HCl (Apresoline) 10 mg SLOW IVP Q4H PRN PRN Reason: SBP > 180 and HR < 70 Dextrose/Water (D5w) 1,000 mls @ 0 mls/hr IV .Q0M PRN PRN Reason: Hypoglycemia Insulin Human Lispro (Humalog) 0 units SC .MODERATE SLIDING SC PRN PRN Reason: Moderate Correctional Scale Last Admin: 02/24/18 17:30 Dose: 6 unit Insulin Human Lispro (Humalog) 0 units SC .BEDTIME SLIDING SC PRN PRN Reason: Bedtime Correctional Scale Last Admin: 02/21/18 21:05 Dose: 2 unit Levofloxacin (Levaquin) 500 mg PO 0600 [facility] Last Admin: 02/25/18 06:12 Dose: 500 mg Lisinopril (Zestril) 2.5 mg PO DAILY [facility] Last Admin: 02/25/18 10:04 Dose: 2.5 mg Loperamide HCl (Imodium) 2 mg PO PRN PRN PRN Reason: Diarrhea/Loose Stools Last Admin: 02/24/18 08:49 Dose: 2 mg Metoclopramide HCl (Reglan) 5 mg IVP Q4H PRN PRN Reason: Nausea Mineral Oil/White Petrolatum (Eucerin Cream) 0 gm TOP BIDPRN PRN PRN Reason: Dry Skin Mometasone Furoate/Formoterol Fumar (Dulera 200 Mcg/5 Mcg Inhaler) 2 puff INH BID-RT [facility] Last Admin: 02/25/18 06:39 Dose: 2 puff Nicotine (Nicoderm Patch) 21 mg TD Q24HR [facility] Last Admin: 02/24/18 16:53 Dose: 21 mg Ondansetron HCl (Zofran Odt) 4 mg PO Q6H PRN PRN Reason: Nausea/Vomiting Ondansetron HCl (Zofran) 4 mg IVP Q6H PRN PRN Reason: Nausea/Vomiting Prednisone (Prednisone) 20 mg PO QAM-WM [facility] Last Admin: 02/25/18 10:05 Dose: 20 mg Ropinirole HCl (Requip) 2 mg PO HS [facility] Last Admin: 02/24/18 22:05 Dose: 2 mg Sertraline HCl (Zoloft) 100 mg PO DAILY [facility] Last Admin: 02/25/18 10:03 Dose: 100 mg Sodium Chloride ([place] Nasal [place] 0.65%) 0 ml EA NARE QIDPRN PRN PRN Reason: Nasal Congestion Tamsulosin HCl (Flomax) 0.4 mg PO DAILY [facility] Last Admin: 02/25/18 10:04 Dose: 0.4 mg Throat Lozenges (Cepastat Lozenges) 1 nila PO Q2H PRN PRN Reason: Sore Throat Zolpidem Tartrate (Ambien) 5 mg PO HSPRN PRN PRN Reason: Insomnia
--- NOTE | 2018-02-25 11:31 | DIS ---
DATE OF ADMISSION: 02/20/2018 DATE OF DISCHARGE: 02/25/2018 PRIMARY CARE PHYSICIAN: Dr. Junaid Velazquez. DISCHARGE DISPOSITION: Home. PRIMARY DISCHARGE DIAGNOSES: 1. Septic shock, resolved. 2. Lactic acidosis, resolved. 3. Moderate aortic stenosis. 4. New onset systolic heart failure. 5. New onset cardiomyopathy. 6. Demand ischemia of myocardium. 7. Urinary tract infection. 8. Urinary retention due to benign enlargement of prostate. 9. Solitary lung nodule. SECONDARY DISCHARGE DIAGNOSES: 1. Diabetes type 2. 2. Chronic obstructive pulmonary disease. 3. Benign enlargement of prostate. 4. Anxiety. 5. Depression. 6. Tobacco abuse disorder. PRIMARY PROCEDURE/OPERATION: None. RADIOLOGICAL INVESTIGATION: Chest x-ray was unremarkable. CT angiography showed pulmonary nodule, COPD changes. Echocardiography showed EF of 25% to 30%, moderate aortic stenosis. SIGNIFICANT LABORATORY DATA: WBC 8.0, hemoglobin 13.7, platelet 142. Sodium 132, potassium 4.2, BUN 16, creatinine 0.82, calcium 8.2. BNP 260. Urinalysis suggestive of UTI. Urine culture negative. Blood culture negative. C. diff negative. Respiratory virus panel negative. Influenza negative. DISCHARGE MEDICATIONS: 1. Bupropion XL 150 mg p.o. daily. 2. Cilostazol 50 mg b.i.d. 3. Clonazepam 1 mg p.o. at bedtime. 4. Metformin 750 mg daily. 5. Ropinirole ER 2 mg at bedtime. 6. Zoloft 100 mg daily. 7. Zocor 40 mg p.o. at bedtime. 8. Flomax 0.4 mg daily. 9. Aspirin 81 mg daily. 10. Coreg 3.125 mg p.o. b.i.d. 11. Lasix 20 mg daily. 12. Lisinopril 2.5 mg daily. 13. Dulera 2 puff inhalation b.i.d. 14. Prednisone 5 mg p.o. daily for 5 days. 15. Levaquin 500 mg daily for 5 days. CONTRAINDICATION: None. CODE STATUS: Full code. INPATIENT BIKE MECHANIC: Dr. Darling was following while in hospital. Dr. Mckeon was following while in hospital. TEST RESULTS PENDING ON DISCHARGE: None. ALLERGIES: NO KNOWN DRUG ALLERGIES. DISCHARGE PLAN: Post hospital, the patient will follow up with primary care physician. The patient will make an appointment with washer operator, Dr. Darling, for repeat CT chest. The patient has an appointment with Dr. Junaid Velazquez on March 02, 2018 at 10:30 am. The patient will follow up with Dr. Owen Mckeon in 2 to 3 weeks. HOSPITAL COURSE: An 82-year-old male with the above-mentioned medical problem, who was admitted by me on February 20, 2018. Please see my HPI for further details. On admission, the patient was having hypotension. He was septic and he was suffering from septic shock with acute organ dysfunction. He had demand ischemia of myocardium. Initial source of infection is urinary tract. He was also having UTI symptoms. He had retention in the hospital and required a transient Stacy catheterization. He also had significantly abnormal troponin because of demand ischemia. Echocardiography during this admission showed a low EF. We also obtained medical record from other hospital where he was following before coming to our hospital. Per that, this is new cardiomyopathy. His BNP was also elevated. We started Lasix, lisinopril, and Coreg on discharge. Initially, he was given broad-spectrum antibiotic therapy. He required Levophed and subsequently his septic shock resolved. He initially was admitted to ICU and subsequently, he was transferred to telemetry floor. Cardiology and Pulmonary group were following while in hospital. This patient also had a pulmonary nodule and that is why he will need a repeat CT scan after discharge and upon followup with washer operator. Cardiology currently signed off on this patient and the patient is okay to discharge. All new medication prescription given to him. The patient is medically stable for discharge. The patient is seen and examined at bedside today. Please see my progress note from today for further details. Job ID: [id number]
== END 2018-02-25 11:44 | disposition home or self-care (01) | DRG 871 ==
LOC: ERS 11:53 → CCU 15:36 → 2NO 02-22 21:16
PROVIDERS: ADMIT Internal Medicine; ATTEND Internal Medicine
PROC: 3E033XZ Introduction of Vasopressor into Peripheral Vein, Percutaneous Approach (ICD-10-PCS; principal; 2018-02-20)
DX: A41.9 Sepsis, unspecified organism (principal); R65.21 Severe sepsis with septic shock; N39.0 Urinary tract infection, site not specified; I24.8 Other forms of acute ischemic heart disease; E87.2 Acidosis; I42.9 Cardiomyopathy, unspecified; I50.22 Chronic systolic (congestive) heart failure; E78.5 Hyperlipidemia, unspecified; N40.0 Benign prostatic hyperplasia without lower urinary tract symptoms; F41.9 Anxiety disorder, unspecified; F32.9 Major depressive disorder, single episode, unspecified; F17.210 Nicotine dependence, cigarettes, uncomplicated; E11.51 Type 2 diabetes mellitus with diabetic peripheral angiopathy without gangrene; G25.81 Restless legs syndrome; R79.89 Other specified abnormal findings of blood chemistry; R91.1 Solitary pulmonary nodule; I11.0 Hypertensive heart disease with heart failure; I35.0 Nonrheumatic aortic (valve) stenosis
CPT/HCPCS: 36415; 36416; 36556; 71045; 71275; 80048; 80053; 80061; 81003; 81015; 82553; 83605; 83880; 84484; 85025; 87040; 87077; 87086; 87186; 87324; 87449; 87633; 87804; 93306; 94640; 94660; 96361; 96365; 96367; J0696; J1580; J1650; J1940; J1956; J2543; J2920; J3370; J7050; J7506; J7620

== ENCOUNTER 2018-05-25 13:48 | Outpatient (CLI) | payer MEDICARE ==
--- NOTE | 2018-05-25 14:58 | CT ---
CT CHEST PERFORMED WITHOUT CONTRAST ENHANCEMENT: History: Follow up lung nodules. Comparison: 02-20-18 FINDINGS: There are several pulmonary nodules identified. There is a ground glass nodule seen in the left lung apex, axial image 12, measuring approximately 14-15 mm in maximum dimension, stable. There is a left upper lobe nodular density which is seen on axial image 30 and 31 measuring in the 5 mm range, also s table. Parenchymal scarring seen slightly central to this is also unchanged. A tiny 2-3 mm pleural ba sed nodule in the left lower lobe, axial image 51, is stable. On the right side there is a slightly more ill-defined predominately ground glass nodule seen, axial image 45, measuring 7-8 mm. It is pleural based and stable. Small 4-5 mm nodular density also seen at this level. It is unchanged. No significant mediastinal adenopathy appreciated. There are moderate coronary calcifications. Visualized liver parenchyma shows no focal findings. IMPRESSION: Stable appearance to the bilateral pulmonary nodules. A yearly follow up examination is recommended f or assessment. POS: [facility]
== END 2018-05-25 13:49 | disposition home or self-care (01) ==
LOC: CT 13:48
PROVIDERS: ATTEND Family Medicine
DX: R91.8 Other nonspecific abnormal finding of lung field (principal)
CPT/HCPCS: 71250

== ENCOUNTER 2018-11-23 11:44 | Emergency (ER) | payer MEDICARE ==
[2018-11-23 12:39] LABS: #Basophils 0.1 thou/uL (0.0-0.2); #Eosinphils 0.1 thou/uL (0.0-0.7); #Monocytes 1.2 thou/uL (0.11-0.59); #Neutrophils 8.4 thou/uL (1.40-6.50); %Basophils 0.6 % (0.0-1.0); %Eosinophils 1.1 % (0.0-10.0); %Lymphocytes 16.7 % (21.0-51.0); %Monocytes 10.5 % (0.0-10.0); %Neutrophils 71.1 % (42.0-75.0); Hemoglobin 16.4 g/dL (14.0-18.0); Mean Corpuscular HGB CONC 34.4 g/dL (32.0-36.0); Mean Corpuscular Hemoglobin 31.2 pg (27.0-31.0); Mean Corpuscular Volume 90.7 fL (78.0-98.0); Mean Platelet Volume 7.6 fL (7.4-10.4); Platelet Count 227 thou/uL (130-400); RBC Distribution Width 13.1 % (11.5-14.5); Red Blood Cell (RBC) Count 5.25 mill/uL (4.70-6.10); White Blood Cell (WBC) Count 11.8 thou/uL (4.8-10.8)
[2018-11-23 13:01] LABS: ALT (SGPT) 17 U/L (8-55); AST (SGOT) 21 U/L (5-34); Albumin 4.5 g/dL (3.4-4.8); Alkaline Phosphatase 65 U/L (40-110); Anion Gap 14 mmol/L (10-20); BUN (Urea Nitrogen) 22 mg/dL (8.4-25.7); Bilirubin, Total 0.8 mg/dL (0.2-1.2); Calc. Creatinine Clearance 0 mL/min (70-130); Calcium 9.5 mg/dL (7.8-10.44); Carbon Dioxide 25 mmol/L (23-31); Chloride 97 mmol/L (98-107); Estimated GFR-MDRD 59; Globulin 3.2 g/dL (2.4-3.5); Glucose 188 mg/dL (83-110); Potassium 4.1 mmol/L (3.5-5.1); Protein, Total 7.7 g/dL (5.8-8.1); Sodium 132 mmol/L (136-145)
[2018-11-23 14:22] LABS: Bilirubin Negative (Negative); Blood, Urine Negative (Negative); Clarity Clear (Clear); Glucose, Urine (Dipstick) Normal (Negative); Leukocyte Negative Leu/uL (Negative); Nitrite Negative (Negative); Protein, Urine (Dipstick) Negative (Neg-Trace); Urobilinogen Normal mg/dL (Less than 2)
== END 2018-11-23 15:14 | disposition home or self-care (01) ==
LOC: ERS 11:44
DX: N40.0 Benign prostatic hyperplasia without lower urinary tract symptoms (principal); R33.8 Other retention of urine; E11.9 Type 2 diabetes mellitus without complications; E78.5 Hyperlipidemia, unspecified; I10 Essential (primary) hypertension; F43.10 Post-traumatic stress disorder, unspecified; Z79.899 Other long term (current) drug therapy; Z79.84 Long term (current) use of oral hypoglycemic drugs
CPT/HCPCS: 36415; 51702; 80053; 81003; 85025

== ENCOUNTER 2018-11-24 10:20 | Outpatient (CLI) | payer MEDICARE ==
--- NOTE | 2018-11-24 11:52 | RAD ---
2 VIEW CHEST: Date: 11/24/18 HISTORY: Dyspnea. FINDINGS: Lungs appear clear. No infiltrate identified. Heart and mediastinum unremarkable. Aortic calcificatio n. Osseous structures unremarkable. IMPRESSION: No acute process. POS: [facility]
== END 2018-11-24 10:21 | disposition home or self-care (01) ==
LOC: RAD 10:20
PROVIDERS: ATTEND Internal Medicine Pulmonary Disease
DX: R06.00 Dyspnea, unspecified (principal)
CPT/HCPCS: 71046

== ENCOUNTER 2018-11-27 11:20 | Emergency (ER) | payer MEDICARE ==
[2018-11-27 12:11] LABS: Bilirubin Small (Negative); Blood, Urine Large (Negative); Glucose, Urine (Dipstick) Negative (Negative); Leukocyte Small (Negative); Nitrite Negative (Negative); Protein, Urine (Dipstick) 100 mg/dL (Neg-Trace)
[2018-11-27 12:13] LABS: Clarity Turbid (Clear)
[2018-11-27 12:19] LABS: RBC/HPF Greater than 50 HPF (0-3)
[2018-11-27 12:20] LABS: Bacteria/HPF None Seen HPF (None Seen); Squamous Epithelial 0-3 HPF (0-3)
== END 2018-11-27 13:04 | disposition home or self-care (01) ==
LOC: ERS 11:20
DX: N40.1 Benign prostatic hyperplasia with lower urinary tract symptoms (principal); R31.9 Hematuria, unspecified; E11.51 Type 2 diabetes mellitus with diabetic peripheral angiopathy without gangrene; E78.5 Hyperlipidemia, unspecified; I10 Essential (primary) hypertension; Z79.899 Other long term (current) drug therapy; Z79.84 Long term (current) use of oral hypoglycemic drugs
CPT/HCPCS: 81003; 81015; 87086; 99283

== ENCOUNTER 2019-06-15 08:06 | Emergency (ER) | payer MEDICARE ==
[2019-06-15 08:44] LABS: Bilirubin Negative (Negative); Blood, Urine Negative (Negative); Glucose, Urine (Dipstick) Negative (Negative); Leukocyte Negative (Negative); Nitrite Negative (Negative); Protein, Urine (Dipstick) Negative (Neg-Trace); Urobilinogen 0.2 mg/dL (Less than 2)
[2019-06-15 08:45] LABS: Clarity Clear (Clear)
[2019-06-15 08:55] LABS: #Basophils 0.1 thou/uL (0.0-0.2); #Eosinphils 0.2 thou/uL (0.0-0.7); #Lymphocytes 1.3 thou/uL (1.20-3.40); #Monocytes 0.9 thou/uL (0.11-0.59); #Neutrophils 7.2 thou/uL (1.40-6.50); %Basophils 0.7 % (0.0-1.0); %Eosinophils 1.6 % (0.0-10.0); %Lymphocytes 13.6 % (21.0-51.0); %Neutrophils 75.1 % (42.0-75.0); Hemoglobin 16.6 g/dL (14.0-18.0); Mean Corpuscular HGB CONC 34.5 g/dL (32.0-36.0); Mean Corpuscular Hemoglobin 31.5 pg (27.0-31.0); Mean Corpuscular Volume 91.4 fL (78.0-98.0); Mean Platelet Volume 8.3 fL (7.4-10.4); Platelet Count 232 thou/uL (130-400); RBC Distribution Width 13.5 % (11.5-14.5); Red Blood Cell (RBC) Count 5.25 mill/uL (4.70-6.10); White Blood Cell (WBC) Count 9.6 thou/uL (4.8-10.8)
[2019-06-15 09:16] LABS: ALT (SGPT) 8 U/L (8-55); AST (SGOT) 15 U/L (5-34); Albumin 4.2 g/dL (3.4-4.8); Alkaline Phosphatase 63 U/L (40-110); Anion Gap 14 mmol/L (10-20); BUN (Urea Nitrogen) 17 mg/dL (8.4-25.7); Bilirubin, Total 0.8 mg/dL (0.2-1.2); Calc. Creatinine Clearance 0 mL/min (70-130); Calcium 8.9 mg/dL (7.8-10.44); Carbon Dioxide 24 mmol/L (23-31); Chloride 101 mmol/L (98-107); Estimated GFR-MDRD 73; Globulin 3.1 g/dL (2.4-3.5); Glucose 145 mg/dL (83-110); Potassium 3.9 mmol/L (3.5-5.1); Protein, Total 7.3 g/dL (5.8-8.1); Sodium 135 mmol/L (136-145)
== END 2019-06-15 09:47 | disposition home or self-care (01) ==
LOC: ERS 08:06
DX: R33.9 Retention of urine, unspecified (principal); E11.9 Type 2 diabetes mellitus without complications; F41.9 Anxiety disorder, unspecified; F43.10 Post-traumatic stress disorder, unspecified; F17.210 Nicotine dependence, cigarettes, uncomplicated; I73.9 Peripheral vascular disease, unspecified; E78.5 Hyperlipidemia, unspecified; I10 Essential (primary) hypertension; Z79.84 Long term (current) use of oral hypoglycemic drugs; Z79.891 Long term (current) use of opiate analgesic; Z79.82 Long term (current) use of aspirin; Z79.899 Other long term (current) drug therapy
CPT/HCPCS: 36415; 51702; 80053; 81003; 85025; 87086

== ENCOUNTER 2019-06-19 10:38 | Emergency (ER) | payer MEDICARE | END 2019-06-19 13:46 | disposition home or self-care (01) | LOC: ERS 10:38 | DX: Z46.6 Encounter for fitting and adjustment of urinary device (principal); I73.9 Peripheral vascular disease, unspecified; E11.9 Type 2 diabetes mellitus without complications; E78.5 Hyperlipidemia, unspecified; I10 Essential (primary) hypertension; F41.9 Anxiety disorder, unspecified; F43.10 Post-traumatic stress disorder, unspecified; F17.210 Nicotine dependence, cigarettes, uncomplicated; Z79.84 Long term (current) use of oral hypoglycemic drugs; Z79.891 Long term (current) use of opiate analgesic; Z79.899 Other long term (current) drug therapy | CPT/HCPCS: 99283 ==

== ENCOUNTER 2019-06-20 02:18 | Emergency (ER) | payer MEDICARE | END 2019-06-20 03:21 | disposition home or self-care (01) | LOC: ERS 02:18 | DX: R33.9 Retention of urine, unspecified (principal); Z46.6 Encounter for fitting and adjustment of urinary device; I73.9 Peripheral vascular disease, unspecified; E11.9 Type 2 diabetes mellitus without complications; E78.5 Hyperlipidemia, unspecified; I10 Essential (primary) hypertension; F43.10 Post-traumatic stress disorder, unspecified; F41.9 Anxiety disorder, unspecified; F17.210 Nicotine dependence, cigarettes, uncomplicated; Z79.82 Long term (current) use of aspirin; Z79.899 Other long term (current) drug therapy; Z79.891 Long term (current) use of opiate analgesic; Z79.84 Long term (current) use of oral hypoglycemic drugs ==

== ENCOUNTER 2019-06-20 20:42 | Emergency (ER) | payer MEDICARE ==
[2019-06-21 01:40] LABS: Bacteria/HPF None Seen HPF (None Seen); Bilirubin Negative (Negative); Blood, Urine 2+ (Negative); Clarity Clear (Clear); Glucose, Urine (Dipstick) 100 mg/dL (Negative); Leukocyte 75 Leu/uL (Negative); Nitrite Negative (Negative); Protein, Urine (Dipstick) 20 mg/dL (Neg-Trace); RBC/HPF Greater than 50 HPF (0-3); Squamous Epithelial 0-3 HPF (0-3); Urobilinogen Normal mg/dL (Less than 2)
== END 2019-06-21 01:50 | disposition home or self-care (01) ==
LOC: ERS 20:42
DX: R33.9 Retention of urine, unspecified (principal); E11.51 Type 2 diabetes mellitus with diabetic peripheral angiopathy without gangrene; E78.5 Hyperlipidemia, unspecified; F41.9 Anxiety disorder, unspecified; F43.10 Post-traumatic stress disorder, unspecified; N40.0 Benign prostatic hyperplasia without lower urinary tract symptoms; I10 Essential (primary) hypertension; F17.210 Nicotine dependence, cigarettes, uncomplicated; Z79.82 Long term (current) use of aspirin; Z79.84 Long term (current) use of oral hypoglycemic drugs; Z79.899 Other long term (current) drug therapy
CPT/HCPCS: 51702; 51703; 81003; 81015; 87086

== ENCOUNTER 2019-09-30 11:35 | Outpatient (CLI) | payer MEDICARE ==
--- NOTE | 2019-09-30 12:22 | ULT ---
VENOUS DUPLEX SONOGRAM LEFT UPPER EXTREMITY: HISTORY: Left arm pain and edema. FINDINGS: The left internal jugular and subclavian veins were evaluated along with the axillary, brachial, ceph alic, and basilic veins. Internal thrombus with lack of compressibility and flow involve the basilic vein at the level of the antecubital fossa and forearm. At the level of the upper arm it is patent. Good color and spectral Doppler flow throughout the remainder of the visualized venous structures. IMPRESSION : Occlusive thrombus involving the basilic vein at the antecubital fossa and forearm. Deep venous syste m is not involved. Findings were sent to Reece Rodrigues via [employer] at 1220 hours. Code CR. Transcribed Date/Time: 09/30/2019 12:25 PM
== END 2019-09-30 11:36 | disposition home or self-care (01) ==
LOC: SCSULT 11:35
PROVIDERS: ATTEND Physician Assistant
DX: R60.9 Edema, unspecified (principal); I82.612 Acute embolism and thrombosis of superficial veins of left upper extremity

== ENCOUNTER 2022-03-17 14:58 | Outpatient (CLI) | payer MEDICARE | END 2022-03-17 14:59 | disposition home or self-care (01) | LOC: RAD 14:58 | PROVIDERS: ATTEND Internal Medicine Cardiovascular Disease | DX: M79.622 Pain in left upper arm (principal); M18.12 Unilateral primary osteoarthritis of first carpometacarpal joint, left hand; M19.042 Primary osteoarthritis, left hand ==

== ENCOUNTER 2022-03-19 13:13 | Outpatient (CLI) | payer MEDICARE | END 2022-03-19 13:14 | disposition home or self-care (01) | LOC: RAD 13:13 | PROVIDERS: ATTEND Internal Medicine Cardiovascular Disease | DX: M79.662 Pain in left lower leg (principal) ==

== ENCOUNTER 2022-05-21 13:36 | Outpatient (CLI) | payer MEDICARE | END 2022-05-21 13:37 | disposition home or self-care (01) | LOC: BICRAD 13:36 | PROVIDERS: ATTEND Family Medicine | DX: Z12.2 Encounter for screening for malignant neoplasm of respiratory organs (principal); F17.210 Nicotine dependence, cigarettes, uncomplicated; J18.9 Pneumonia, unspecified organism; J92.9 Pleural plaque without asbestos | CPT/HCPCS: 71046 ==

== ENCOUNTER 2022-05-27 14:12 | Outpatient (CLI) | payer MEDICARE ==
[2022-05-27] MEDS ORDERED: Iopamidol 370 76% 100 ML VIAL ONE (14:57)
== END 2022-05-27 14:13 | disposition home or self-care (01) ==
LOC: CT 14:12
PROVIDERS: ATTEND Family Medicine
DX: J98.4 Other disorders of lung (principal)
CPT/HCPCS: 71270; 82565